=== PATIENT | male | born 1950 | race Caucasian/White ===

== ENCOUNTER 2023-11-26 16:57 | Inpatient (IN) | payer MEDICARE, OTHER ==
--- NOTE | 2023-11-26 17:25 | ED ---
Weakness HPI - General Chief complaint: Weakness Stated complaint: Hypothermia Time Seen by Provider: 11/26/23 17:15 Source: EMS, RN notes reviewed, old records reviewed Mode of arrival: EMS Limitations: no limitations - History of Present Illness Initial comments: 73-year-old male to the emergency department for evaluation today. Patient presents to the ER today for evaluation of severe weakness altered mental status and found to be acting appropriately outside, when EMS got the patient's house the house was significantly cold with a temperature in the 30s and patient was outside with altered mental status presents to ER with hypothermia MD Complaint: generalized weakness, lack of energy, difficulty walking -: days(s) Location: generalized Severity: moderate Severity scale (1-10): 7 Quality: aching Consistency: constant Improves with: none Worsens with: none Context: recent illness, history of similar Associated Symptoms: denies other symptoms - Related Data Home Medications Medication Instructions Recorded Confirmed Multivitamins, Thera [Multivitamin 1 tab PO DAILY 11/26/23 11/26/23 (formulary)] Allergies Allergy/AdvReac Type Severity Reaction Status Date / Time No Known Allergies Allergy Verified 11/26/23 18:17 Review of Systems ROS Statement: Those systems with pertinent positive or pertinent negative responses have been documented in the HPI. ROS Other: All systems not noted in ROS Statement are negative. Past Medical History Past Medical History: No Reported History History of Any Multi-Drug Resistant Organisms: None Reported Past Surgical History: No Surgical Hx Reported Past Psychological History: No Psychological Hx Reported Smoking Status: Never smoker Past Alcohol Use History: None Reported Past Drug Use History: None Reported General Exam Limitations: no limitations, altered mental status, physical limitation General appearance: alert, anxious, lethargic, obtunded, in distress Head exam: Present: atraumatic, normocephalic, normal inspection Eye exam: Present: normal appearance, PERRL, EOMI. Absent: scleral icterus, conjunctival injection, periorbital swelling ENT exam: Present: normal exam, mucous membranes moist Neck exam: Present: normal inspection. Absent: tenderness, meningismus, lymphadenopathy Respiratory exam: Present: normal lung sounds bilaterally. Absent: respiratory distress, wheezes, rales, rhonchi, stridor Cardiovascular Exam: Present: regular rate, normal rhythm, normal heart sounds. Absent: systolic murmur, diastolic murmur, rubs, gallop, clicks GI/Abdominal exam: Present: soft, normal bowel sounds. Absent: distended, tenderness, guarding, rebound, rigid Extremities exam: Present: normal inspection, full ROM, normal capillary refill. Absent: tenderness, pedal edema, joint swelling, calf tenderness Back exam: Present: normal inspection Neurological exam: Present: alert, oriented X3, CN II-XII intact Psychiatric exam: Present: normal affect, normal mood Skin exam: Present: warm, dry, intact, normal color. Absent: rash Course Vital Signs 11/26/23 11/26/23 11/26/23 17:07 17:58 18:00 Temperature 87.1 F L 90.0 F L Pulse Rate 68 62 67 Pulse Rate [ Pulse Oximetery ] Respiratory 18 16 16 Rate Blood Pressure 150/84 145/82 Blood Pressure [Supine] O2 Sat by Pulse 95 95 Oximetry 11/26/23 11/26/23 11/26/23 18:05 18:12 19:31 Temperature 90.0 F L 91.8 F L Pulse Rate 64 80 Pulse Rate [ Pulse Oximetery ] Respiratory 16 19 Rate Blood Pressure 152/106 Blood Pressure [Supine] O2 Sat by Pulse 99 Oximetry 11/26/23 11/26/23 11/26/23 20:59 21:17 21:51 Temperature 88.9 F L 86.9 F L 97.8 F Pulse Rate 79 87 Pulse Rate [ Pulse Oximetery ] Respiratory 17 17 Rate Blood Pressure Blood Pressure [Supine] O2 Sat by Pulse Oximetry 11/26/23 11/27/23 11/27/23 22:56 00:56 01:21 Temperature 97.7 F 97.6 F Pulse Rate 88 81 Pulse Rate [ Pulse Oximetery ] Respiratory 18 19 Rate Blood Pressure 156/91 145/126 Blood Pressure [Supine] O2 Sat by Pulse 92 L 96 Oximetry 11/27/23 11/27/23 11/27/23 03:20 04:14 06:08 Temperature 97.7 F 97.8 F Pulse Rate 89 84 89 Pulse Rate [ Pulse Oximetery ] Respiratory 18 19 Rate Blood Pressure 152/104 153/106 Blood Pressure [Supine] O2 Sat by Pulse 97 96 99 Oximetry 11/27/23 11/27/23 11/27/23 08:56 10:00 12:00 Temperature 97.8 F Pulse Rate 87 85 82 Pulse Rate [ Pulse Oximetery ] Respiratory 20 18 18 Rate Blood Pressure 165/98 165/115 155/97 Blood Pressure [Supine] O2 Sat by Pulse 100 98 98 Oximetry 11/27/23 11/27/23 11/27/23 14:00 18:45 19:46 Temperature 98.1 F 98.2 F Pulse Rate 84 82 Pulse Rate [ 94 Pulse Oximetery ] Respiratory 19 18 21 Rate Blood Pressure 160/99 138/96 Blood Pressure 166/88 [Supine] O2 Sat by Pulse 96 98 99 Oximetry - Reevaluation(s) Reevaluation #1: 11/26/23 19:26 Record is reviewed Reevaluation #2: 11/26/23 19:26 Patient's core temperature is improving slowly Reevaluation #3: 11/26/23 19:27 Patient informed results and questions are answered Reevaluation #4: 11/26/23 19:27 Was pt. sent in by a medical professional or institution (, PA, [employer] REPAIRER, urgent care, hospital, or retirement...) When possible be specific @ -no Did you speak to anyone other than the patient for history (EMS, parent, family, police, friend...)? What history was obtained from this source @ -no Did you review nursing and triage notes (agree or disagree)? Why? @ -agree Are old charts reviewed (outside hosp., previous admission, EMS record, old EKG, old radiological studies, urgent care reports/EKG's, retirement records)? Report findings @ -yes Differential Diagnosis (chest pain, altered mental status, abdominal pain women, abdominal pain men, vaginal bleeding, weakness, fever, dyspnea, syncope, headache, dizziness, GI bleed, back pain, seizure, CVA, palpatations, mental health, musculoskeletal)? @ -prior EKG interpreted by me (3pts min.). @ -yes X-rays interpreted by me (1pt min.). @ -yes CT interpreted by me (1pt min.). @ -yes positive for bilateral pneumonia U/S interpreted by me (1pt. min.). @ -no What testing was considered but not performed or refused? (CT, X-rays, U/S, labs)? Why? @ -none What meds were considered but not given or refused? Why? @ -none Did you discuss the management of the patient with other professionals (professionals i.e. , PA, [employer] REPAIRER, lab, RT, psych nurse, social professionals, hospice bereavement coordinator, teacher, special officer automat, bilingual case manager)? Give summary @ -no Was smoking cessation discussed for >3mins.? @ -no Was critical care preformed (if so, how long)? @ -yes31 Were there social determinants of health that impacted care today? How? (Homelessness, low income, unemployed, alcoholism, drug addiction, transportation, low edu. Level, literacy, decrease access to med. care, care home, rehab)? @ -none Was there de-escalation of care discussed even if they declined (Discuss DNR or withdrawal of care, Hospice)? DNR status @ -no What co-morbidities impacted this encounter? (DM, HTN, Smoking, COPD, CAD, Cancer, CVA, ARF, Chemo, Hep., AIDS, mental health diagnosis, sleep apnea, morbid obesity)? @ -none Was patient admitted / discharged? Hospital course, mention meds given and route, prescriptions, significant lab abnormalities, going to OR and other pertinent info. @ - 73 male to the emergency department for evaluation of altered mental status decreased responsiveness and severe hypothermia, whether induced hypothermia patient will be admitted for rewarming and monitoring of vital signs supportive care Admitted Undiagnosed new problem with uncertain prognosis? @ -no Drug Therapy requiring intensive monitoring for toxicity (Heparin, Nitro, Insulin, Cardizem)? @ -no Were any procedures done? @ -no Diagnosis/symptom? @ -Hypothermia, weakness, pneumonia Acute, or Chronic, or Acute on Chronic? @ -Acute Uncomplicated (without systemic symptoms) or Complicated (systemic symptoms)? @ -Complicated Side effects of treatment? @ -no Exacerbation, Progression, or Severe Exacerbation? @ -exacerbation Poses a threat to life or bodily function? How? (Chest pain, USA, CT, pneumonia, PE, COPD, DKA, ARF, appy, cholecystitis, CVA, Diverticulitis, Homicidal, Suicidal, threat to staff... and all critical care pts) @ -yes significant hypothermia Reevaluation #5: 11/26/23 19:40 Differential Altered Mental Status: Hypoglycemia, DKA, hypercapnia, ETOH, overdose, CO poisoning, trauma, myxedema coma, HTN encephalopathy, infection, encephalitis, psychosis, intercranial hemorrhage, hepatic encephalopathy, meningitis, CVA, this is not meant to be an all-inclusive list - Consultations Consultation #1: Spoke with Dr. Dewitt who will admit this patient Consultation #2: spoke w Dr Tyler eller ICU admission EKG Findings - EKG Comments: EKG Findings:: EKG is sinus 64 GA 148 QRS 117 QTc 479 - EKG Results: EKG: interpreted by FREDY Medical Decision Making - Medical Decision Making 73 male to the emergency department for evaluation of altered mental status decreased responsiveness and severe hypothermia, whether induced hypothermia patient will be admitted for rewarming and monitoring of vital signs supportive care, patient found to have pneumonia on CT scanning - Lab Data Result diagrams: 11/30/23 04:02 11/30/23 04:02 Lab Results 11/26/23 11/26/23 11/26/23 Range/Units 17:41 17:41 17:41 WBC 11.2 H (3.8-10.6) k/uL RBC 3.67 L (4.30-5.90) m/uL Hgb 10.8 L (13.0-17.5) gm/dL Hct 33.1 L (39.0-53.0) % MCV 90.2 (80.0-100.0) fL MCH 29.4 (25.0-35.0) pg MCHC 32.6 (31.0-37.0) g/dL RDW 16.6 H (11.5-15.5) % Plt Count 252 (150-450) k/uL MPV 8.2 Neutrophils % 94 % Lymphocytes % 3 % Monocytes % 2 % Eosinophils % 0 % Basophils % 0 % Neutrophils # 10.5 H (1.3-7.7) k/uL Lymphocytes # 0.4 L (1.0-4.8) k/uL Monocytes # 0.2 (0-1.0) k/uL Eosinophils # 0.0 (0-0.7) k/uL Basophils # 0.0 (0-0.2) k/uL Anisocytosis Slight PT 13.3 H (10.0-12.5) sec INR 1.3 H (<1.2) APTT 30.3 H (22.0-30.0) sec D-Dimer 3.31 H (<0.60) mg/L FEU Sodium (137-145) mmol/L Potassium (3.5-5.1) mmol/L Chloride (98-107) mmol/L Carbon Dioxide (22-30) mmol/L Anion Gap mmol/L BUN (9-20) mg/dL Creatinine (0.66-1.25) mg/dL Est GFR (CKD-EPI)AfAm (>60 ml/min/1.73 sqM) Est GFR (CKD-EPI)NonAf (>60 ml/min/1.73 sqM) Glucose (74-99) mg/dL Plasma Lactic Acid Pool (0.7-2.0) mmol/L Calcium (8.4-10.2) mg/dL Phosphorus (2.5-4.5) mg/dL Magnesium (1.6-2.3) mg/dL Total Bilirubin (0.2-1.3) mg/dL AST (17-59) U/L ALT (4-49) U/L Alkaline Phosphatase (38-126) U/L Ammonia (<30) umol/L Creatine Kinase (55-170) U/L Troponin I (0.000-0.034) ng/mL NT-Pro-B Natriuret Pep pg/mL Total Protein (6.3-8.2) g/dL Albumin (3.5-5.0) g/dL TSH (0.465-4.680) mIU/L Urine Color Yellow Urine Appearance Clear (Clear) Urine pH 5.5 (5.0-8.0) Ur Specific O'Brien 1.021 (1.001-1.035) Urine Protein 1+ H (Negative) Urine Glucose (UA) Negative (Negative) Urine Ketones Negative (Negative) Urine Blood Trace H (Negative) Urine Nitrite Negative (Negative) Urine Bilirubin Negative (Negative) Urine Urobilinogen <2.0 (<2.0) mg/dL Ur Leukocyte Esterase Negative (Negative) Urine RBC 1 (0-5) /hpf Urine WBC 4 (0-5) /hpf Hyaline Casts 7 H (0-2) /lpf Urine Mucus Occasional H (None) /hpf Serum Alcohol mg/dL 11/26/23 11/26/23 11/26/23 Range/Units 17:41 17:41 17:41 WBC (3.8-10.6) k/uL RBC (4.30-5.90) m/uL Hgb (13.0-17.5) gm/dL Hct (39.0-53.0) % MCV (80.0-100.0) fL MCH (25.0-35.0) pg MCHC (31.0-37.0) g/dL RDW (11.5-15.5) % Plt Count (150-450) k/uL MPV Neutrophils % % Lymphocytes % % Monocytes % % Eosinophils % % Basophils % % Neutrophils # (1.3-7.7) k/uL Lymphocytes # (1.0-4.8) k/uL Monocytes # (0-1.0) k/uL Eosinophils # (0-0.7) k/uL Basophils # (0-0.2) k/uL Anisocytosis PT (10.0-12.5) sec INR (<1.2) APTT (22.0-30.0) sec D-Dimer (<0.60) mg/L FEU Sodium 132 L (137-145) mmol/L Potassium 3.5 (3.5-5.1) mmol/L Chloride 94 L (98-107) mmol/L Carbon Dioxide 29 (22-30) mmol/L Anion Gap 9 mmol/L BUN 23 H (9-20) mg/dL Creatinine 0.82 (0.66-1.25) mg/dL Est GFR (CKD-EPI)AfAm >90 (>60 ml/min/1.73 sqM) Est GFR (CKD-EPI)NonAf 89 (>60 ml/min/1.73 sqM) Glucose 166 H (74-99) mg/dL Plasma Lactic Acid Pool 1.8 (0.7-2.0) mmol/L Calcium 9.6 (8.4-10.2) mg/dL Phosphorus 5.1 H (2.5-4.5) mg/dL Magnesium 1.8 (1.6-2.3) mg/dL Total Bilirubin 0.5 (0.2-1.3) mg/dL AST 79 H (17-59) U/L ALT 23 (4-49) U/L Alkaline Phosphatase 106 (38-126) U/L Ammonia <9 (<30) umol/L Creatine Kinase 533 H (55-170) U/L Troponin I 0.020 (0.000-0.034) ng/mL NT-Pro-B Natriuret Pep 4550 pg/mL Total Protein 6.0 L (6.3-8.2) g/dL Albumin 3.3 L (3.5-5.0) g/dL TSH 3.530 (0.465-4.680) mIU/L Urine Color Urine Appearance (Clear) Urine pH (5.0-8.0) Ur Specific O'Brien (1.001-1.035) Urine Protein (Negative) Urine Glucose (UA) (Negative) Urine Ketones (Negative) Urine Blood (Negative) Urine Nitrite (Negative) Urine Bilirubin (Negative) Urine Urobilinogen (<2.0) mg/dL Ur Leukocyte Esterase (Negative) Urine RBC (0-5) /hpf Urine WBC (0-5) /hpf Hyaline Casts (0-2) /lpf Urine Mucus (None) /hpf Serum Alcohol <10 mg/dL - EKG Data -: EKG Interpreted by Ct - Radiology Data Radiology results: report reviewed (X-rays negative for acute disease, CT chest CT head and pelvis is positive for pneumonia), image reviewed Critical Care Time Critical Care Time: Yes Total Critical Care Time: 31 Disposition Clinical Impression: Dehydration, Hypothermia, Pneumonia, Anemia, Metastatic cancer, Bilateral pneumonia Disposition: ADMITTED IP TO THIS [facility] Condition: Serious Is patient prescribed a controlled substance at d/c from ED?: No Time of Disposition: 19:20
[2023-11-26] MEDS: SODIUM CHLORIDE 0.9% 500 ML 500 ML IV STA (17:40)
[2023-11-26] MEDS: SODIUM CHLORIDE 0.9% 1,000 ML IV STA ×2 (17:40)
[2023-11-26] MEDS: IPRATROPIUM-ALBUTEROL 3 ML NEB INHALATION STA (17:58)
[2023-11-26] MEDS: HYDROCORTISONE SUCCINATE 100 MG/2 ML VIAL IV STA (18:00)
[2023-11-26 18:14] LABS: Lactic Acid, Venous 1.8 mmol/L (0.7-2.0)
[2023-11-26 18:16] LABS: ALT 23 U/L (4-49); African American GFR (CKD) >90 (>60 ml/min/1.73 sqM); Albumin 3.3 g/dL (3.5-5.0); Alcohol <10 mg/dL; Alkaline Phosphatase 106 U/L (38-126); Anion Gap 9 mmol/L; Blood Urea Nitrogen 23 mg/dL (9-20); Calcium 9.6 mg/dL (8.4-10.2); Carbon Dioxide 29 mmol/L (22-30); Chloride 94 mmol/L (98-107); Creatine Kinase 533 U/L (55-170); Glucose 166 mg/dL (74-99); Non-African American GFR(CKD) 89 (>60 ml/min/1.73 sqM); Phosphorus 5.1 mg/dL (2.5-4.5); Sodium 132 mmol/L (137-145); Total Bilirubin 0.5 mg/dL (0.2-1.3)
[2023-11-26 18:19] LABS: AST 79 U/L (17-59); Potassium 3.5 mmol/L (3.5-5.1)
[2023-11-26 18:20] LABS: Magnesium 1.8 mg/dL (1.6-2.3)
[2023-11-26 18:23] LABS: Anisocytosis Slight; Basophils % (A) 0 %; Eosinophils % (A) 0 %; HCT 33.1 % (39.0-53.0); HGB 10.8 gm/dL (13.0-17.5); Lymphocytes # (A) 0.4 k/uL (1.0-4.8); Lymphocytes % (A) 3 %; MCH 29.4 pg (25.0-35.0); MCHC 32.6 g/dL (31.0-37.0); MCV 90.2 fL (80.0-100.0); Mean Platelet Volume 8.2; Monocytes # (A) 0.2 k/uL (0-1.0); Monocytes % (A) 2 %; Neutrophils # (A) 10.5 k/uL (1.3-7.7); Neutrophils % (A) 94 %; Platelet Count 252 k/uL (150-450); RBC 3.67 m/uL (4.30-5.90); RDW 16.6 % (11.5-15.5); WBC 11.2 k/uL (3.8-10.6)
[2023-11-26 18:24] LABS: INR 1.3 (<1.2); NT-Pro-B-Type Natriuretic Pept 4550 pg/mL; Partial Thromboplastin Time 30.3 sec (22.0-30.0); Prothrombin Time 13.3 sec (10.0-12.5)
--- NOTE | 2023-11-26 18:55 | XR ---
EXAMINATION TYPE: XR chest 1V portable DATE OF EXAM: 11/26/2023 COMPARISON: NONE HISTORY: Weakness TECHNIQUE: Single frontal view of the chest is obtained. FINDINGS: There are scattered partially consolidative opacities greatest in the left lung base. The heart is mi ldly prominent in size pulmonary vasculature appears mildly congested. There is no pneumothorax or large pleural effusion. There is a chronic displaced left clavicle fractu re. IMPRESSION: Acute cardia point disease could represent mild CHF with mild scattered pulmonary edema but the possibility of pneumonic infiltrates not excluded. Chronic displaced left clavicle fracture.
[2023-11-26] MEDS ORDERED: NALOXONE 0.4 MG/ML 1 ML VIAL IV PRN ×2 (19:41)
[2023-11-26] MEDS ORDERED: IPRATROPIUM-ALBUTEROL 3 ML NEB INHALATION PRN (19:41)
[2023-11-26] MEDS ORDERED: ONDANSETRON 4 MG/2 ML VIAL IVP PRN (19:41)
[2023-11-26 20:17] LABS: Appearance,Urine Clear (Clear); Bilirubin,Urine Negative (Negative); Blood,Urine Trace (Negative); Color,Urine Yellow; Glucose,Urine (UA) Negative (Negative); Hyaline Casts,Urine 7 /lpf (0-2); Ketones,Urine Negative (Negative); Leukocyte Esterase,Urine Negative (Negative); Mucus,Urine Occasional /hpf; Nitrite,Urine Negative (Negative); PH, Urine 5.5 (5.0-8.0); Protein,Urine 1+ (Negative); RBC,Urine 1 /hpf (0-5); Specific Gravity,Urine 1.021 (1.001-1.035); Urobilinogen,Urine <2.0 mg/dL (<2.0); WBC,Urine 4 /hpf (0-5)
--- NOTE | 2023-11-26 20:56 | CT ---
EXAMINATION TYPE: CT abdomen pelvis w con DATE OF EXAM: 11/26/2023 COMPARISON: None HISTORY: Pt was found outside in a snow bank. Pt was taken into his house by bystanders who said his home was [address] DLP: Combined DLP of 1439.7 mGycm Automated exposure control for dose reduction was used. TECHNIQUE: Helical acquisition of images was performed from the lung bases through the pelvis. CONTRAST: Performed without Oral Contrast and with IV Contrast, patient injected with 100ml mL of Isovue 370. FINDINGS: There are bilateral lower lobe infiltrates left greater than right. There is massive retroperitoneal adenopathy, the largest mass measuring 10 cm by nearly 10 cm lung al lima the left aspect of the aorta. There are multiple additional markedly enlarged retroperitoneal lym ph nodes. There is marked internal inguinal adenopathy. The largest node on the right is 8.8 cm the l argest node on the left is approximately 6 cm. There is a massively enlarged prostate gland which is 8.9 x 10 cm. The right kidney is markedly atrophic. There is a large parapelvic cysts of the left kidney. The stomach and right colon are markedly distended but there is no definite bowel obstruction. There is no free intraperitoneal air or fluid. The gallbladder is normal and there is no biliary ductal dilatation. There is no focal mass or organomegaly involving the liver pancreas or spleen. There is a 3.4 cm left adrenal mass. Caliber the abdominal aorta is normal. There are multiple lytic lesions involving the lower thoracic, lumbar spine and pelvis but there is n o pathologic fracture. IMPRESSION: 1. Bibasilar lung infiltrates. 2. Massively enlarged prostate gland with massive retroperitoneal and pelvic adenopathy as described above. 3. Multiple lytic lesions of the dorsal spine and pelvis without pathologic fracture 4. markedly atrophic right kidney 5. Findings likely indicate advanced prostate cancer with marked retroperitoneal and pelvic adenopath y and bone metastasis.
--- NOTE | 2023-11-26 21:02 | CT ---
EXAMINATION TYPE: CT angio chest DATE OF EXAM: 11/26/2023 8:40 PM COMPARISON: None HISTORY: Pt was found outside in a snow bank. Pt was taken into his house by bystanders who said his home was [address] DLP: Combined DLP of 1439.7 mGycm Automated exposure control for dose reduction was used. CONTRAST: CTA scan of the thorax is performed with IV Contrast, patient injected with 100ml mL of Isovue 370, p ulmonary embolism protocol. . FINDINGS: Partially consolidative bibasilar infiltrates, left much greater than right, likely indicating bibas ilar pneumonia Moderate to marked cardiomegaly. The great vessels the chest are otherwise normal. There is no fillin g defect within the pulmonary arteries or branches to suggest pulmonary embolism. There is no pleural effusion or pneumothorax. There are multiple lytic lesions scattered throughout the thoracic spine and possibly within the ster num as well. There is a moderate compression fracture of one of the lower thoracic or upper lumbar ve rtebral segments. IMPRESSION: 1. Bilateral pneumonia. 2. No evidence of pulmonary embolism. 3. Multiple lytic osseous lesions within the bony thorax is described above. The findings are consist ent with metastatic disease likely from prostate cancer, see the CT of the abdomen and pelvis of the same date.
[2023-11-26] MEDS: SODIUM CHLORIDE 0.9% 1,000 ML IV SCH (21:13)
[2023-11-26] MEDS: methylPREDNISolone SOD SUCCI 125 MG/2 ML VIAL IV STA (21:15)
[2023-11-27] MEDS: methylPREDNISolone SOD SUCCI 125 MG/2 ML VIAL IV SCH (01:11)
[2023-11-27] MEDS: PIPERACILLIN-TAZOBACTAM 3.375 GM in SODIUM CHLORIDE 0.9% 100 ML IVPB SCH (01:11)
--- NOTE | 2023-11-27 01:16 | HP ---
HISTORY AND PHYSICAL HISTORY OF PRESENT ILLNESS: A 73-year-old white male, came to the ER with severe weakness, altered mental status with hypothermia, achy, constant pain, found to have elevated CPK. MEDICATIONS: Multivitamin. ALLERGIES: No known drug allergies. SOCIAL HISTORY: Does not smoke or drink. REVIEW OF SYSTEMS: A 14-point review of systems otherwise negative. PHYSICAL EXAMINATION: VITAL SIGNS: Stable. CARDIOVASCULAR: S1, S2. LUNGS: Transmitted upper sounds. Scattered wheeze. HEMATOLOGY: Negative Homans. PSYCH: Fair mood and affect. NEUROLOGIC: Alert and oriented x3. OPHTHALMOLOGIC: Pupils equal, round, reactive. VITAL SIGNS: Temperature is 98 degrees Fahrenheit, pulse 66 to 68, respiratory rate 16 to 18, blood pressure 145 to 150 over 80s, blood pressure elevated 152/106. ASSESSMENT: Severe hypothermic, rhabdomyolysis, chronic obstructive pulmonary disease, acute on chronic respiratory failure, leukocytosis, acute on chronic anemia, hyponatremia, dehydration, altered mental status, decreased responsiveness every morning. ICU care. Consult Dr. Scott for hyperglycemia, most likely diabetes. Elevated D-dimer, rule out PE, cardiomyolysis, protein-calorie malnutrition. Prognosis guarded. Please see further orders. MMODL / IJN: [id number] /
[2023-11-27 01:21] LABS: Alcohol <10 mg/dL; Creatine Kinase 531 U/L (55-170)
[2023-11-27 04:40] LABS: Anisocytosis Slight; Basophils % (A) 0 %; Eosinophils % (A) 0 %; HCT 32.3 % (39.0-53.0); HGB 10.3 gm/dL (13.0-17.5); Hypochromasia Slight; Lymphocytes # (A) 0.1 k/uL (1.0-4.8); Lymphocytes % (A) 1 %; MCH 29.2 pg (25.0-35.0); MCHC 31.8 g/dL (31.0-37.0); MCV 91.8 fL (80.0-100.0); Mean Platelet Volume 8.3; Monocytes # (A) 0.1 k/uL (0-1.0); Monocytes % (A) 1 %; Neutrophils # (A) 9.7 k/uL (1.3-7.7); Neutrophils % (A) 97 %; Platelet Count 262 k/uL (150-450); RBC 3.52 m/uL (4.30-5.90); RDW 16.6 % (11.5-15.5)
[2023-11-27 04:45] LABS: ALT 25 U/L (4-49); AST 91 U/L (17-59); African American GFR (CKD) >90 (>60 ml/min/1.73 sqM); Albumin 3.2 g/dL (3.5-5.0); Alkaline Phosphatase 116 U/L (38-126); Anion Gap 8 mmol/L; Blood Urea Nitrogen 22 mg/dL (9-20); Calcium 9.1 mg/dL (8.4-10.2); Carbon Dioxide 27 mmol/L (22-30); Chloride 98 mmol/L (98-107); Glucose 118 mg/dL (74-99); Magnesium 1.7 mg/dL (1.6-2.3); Non-African American GFR(CKD) 87 (>60 ml/min/1.73 sqM); Phosphorus 5.3 mg/dL (2.5-4.5); Potassium 3.5 mmol/L (3.5-5.1); Sodium 133 mmol/L (137-145); Total Bilirubin 0.5 mg/dL (0.2-1.3); Total Protein 5.9 g/dL (6.3-8.2)
--- NOTE | 2023-11-27 08:00 | P.CNPUL ---
History of Present Illness Consult date: 11/27/23 Requesting physician: John Vaz Reason for consult: other (Hypothermia, ICU management) Chief complaint: Altered mental status History of present illness: I am seeing this patient in new consultation today 11/27/2023 the emergency room after the patient was brought in yesterday by EMS, he was hypothermic, reportedly found outside. Patient is a 73-year-old white male, past medical history is largely unknown, the patient is a very poor historian. Apparently, EMS reported finding him outside, confused, they brought him into his house, in which the heat was not working. He was then brought to [facility]. He was hypothermic on arrival with a temperature of 87.1F rectally. On my evaluation, the patient is alert and sitting up in bed. He is on room air, SpO2 is 86%. Reportedly will not wear supplemental oxygen. He is now normothermic. He is eating a Popsicle. Patient's story is inconsistent, he reports that he was only outside to get his mail, and then contradicts himself by saying that he only walked one city block. The nurse reports that family was at bedside earlier, and stated that he may have been walking to the liquor store. The patient denies this. He states that he does not drink or smoke. It is difficult to obtain a consistent past medical history. Chest x-ray on arrival mild cardiomegaly, possible mild pulmonary vascular congestion, and basilar infiltrates, greater on the left. D- dimer is elevated, the patient had a follow-up chest CTA which did not show any evidence of pulmonary embolism. It did show marked bibasilar infiltrates greater on the left, consistent with bibasilar pneumonia. There were multiple lytic osseous lesions within the bony thorax consistent with metastatic disease. An abdomen and pelvis CT redemonstrated the above-mentioned abnormalities, as well as demonstrating a massively enlarged prostate gland measuring 8.9 x 10 cm, massive retroperitoneal and pelvic adenopathy with the largest lymph node measuring 8.8 cm, multiple lytic lesions of the dorsal spine and pelvis without pathological fracture, and an atrophic right kidney. When questioned about patient's previous history of prostate cancer, the patient states he knows he has prostate cancer, and is not undergoing any treatment at this time. He denies any significant urinary complaints such as dysuria, hematuria, freqency, urgency, or incomplete voiding. CBC demonstrates a WBC count 11.2, hemoglobin 10.8, hematocrit 33.1, platelets 252. BMP shows sodium 132, potassium 3.5, chloride 94, serum bicarbonate 29, BUN 23, creatinine 0.82, and glucose 166. CPK 533. Normal saline infusing at 75 mL per hour. Urinalysis not consistent with urinary tract infection. Troponins 0.02, 0.03, and 0.046 respectfully. NT proBNP elevated at 4550. Patient does have edematous lower extremities with multiple erythemic abrasions. When asked about this, the patient states he was stung by bees. It is winter. Serum alcohol less than 10 on arrival. Vitals are stable. Review of Systems REVIEW OF SYSTEMS: CONSTITUTIONAL: Admits weight loss but unsure of how much or timeframe EYES: Denies change in vision. EARS, NOSE, MOUTH, THROAT: Denies headaches, denies sore throat. CARDIOVASCULAR: Denies chest pain, palpitations or syncopal episodes. RESPIRATORY: Denies shortness of breath, cough, congestion or hemoptysis. GASTROINTESTINAL: Denies change in appetite, abdominal pain, nausea and vomiting, or diarrhea GENITOURINARY: Denies hematuria, denies infections. MUSKULOSKELETAL: Denies pain, denies swelling. INTEGUMENTARY: Unsure of how his bilateral lower extremity abrasions occurred. NEUROLOGICAL: Denies recent memory loss, no recent seizure activity. PSYCHIATRIC: Denies anxiety, denies depression. HEMATOLOGIC/LYMPHATIC: Denies anemia, denies enlarged lymph node Past Medical History Past Medical History: No Reported History History of Any Multi-Drug Resistant Organisms: None Reported Past Surgical History: No Surgical Hx Reported Past Psychological History: No Psychological Hx Reported Smoking Status: Never smoker Past Alcohol Use History: None Reported Past Drug Use History: None Reported Medications and Allergies Home Medications Medication Instructions Recorded Confirmed Type Multivitamins, Thera [Multivitamin 1 tab PO DAILY 11/26/23 11/26/23 History (formulary)] Allergies Allergy/AdvReac Type Severity Reaction Status Date / Time No Known Allergies Allergy Verified 11/26/23 18:17 Physical Exam Vitals: Vital Signs Temp Pulse Resp BP Pulse Ox 11/27/23 00:56 97.6 F 11/26/23 22:56 97.7 F 88 18 156/91 92 L 11/26/23 21:51 97.8 F 11/26/23 21:17 86.9 F L 87 17 11/26/23 20:59 88.9 F L 79 17 11/26/23 19:31 91.8 F L 80 19 152/106 99 11/26/23 18:12 90.0 F L 11/26/23 18:05 64 16 11/26/23 18:00 90.0 F L 67 16 145/82 95 11/26/23 17:58 62 16 11/26/23 17:07 87.1 F L 68 18 150/84 95 Intake and Output 11/26/23 11/26/23 11/27/23 14:59 22:59 06:59 Other: Weight 63.503 kg GENERAL EXAM: Alert, 73-year-old white male, frail, comfortable in no apparent distress. HEAD: Normocephalic. 2 small abrasions on the top of his head. EYES: Normal reaction of pupils, equal size. NOSE: Clear with pink turbinates. THROAT: No erythema or exudates. NECK: No masses, no JVD. No palpable lymphadenopathy. CHEST: No chest wall deformity. There is significant superficial venous congestion on his anterior chest. LUNGS: Equal air entry with diminished lung sounds at the bases. No significant wheezing, crackles, rhonchi. On room air. SpO2 86%. He has a persistent productive cough, which is orange tinged. The color of the popsicle he is eating. No conversational dyspnea or accessory muscle use.. CVS: S1 and S2 normal with no audible murmur, regular rhythm. No extra heart sounds ABDOMEN: No hepatosplenomegaly, active bowel sounds, no guarding or rigidity. SPINE: No scoliosis or deformity SKIN: No rashes CENTRAL NERVOUS SYSTEM: No focal deficits, tone is normal in all 4 extremities. He is alert. He is oriented to self and place only. EXTREMITIES: There is bilateral lower extremity edema 2-3+, greater on the left leg, he is wearing a knee brace, which is tight. No clubbing, or cyanosis. Peripheral pulses are intact. Results - Laboratory Findings CBC and BMP: 11/27/23 04:11 11/27/23 04:11 PT/INR, D-dimer PT 13.3 sec (10.0-12.5) H 11/26/23 17:41 INR 1.3 (<1.2) H 11/26/23 17:41 D-Dimer 3.31 mg/L FEU (<0.60) H 11/26/23 17:41 Abnormal lab findings: Abnormal Labs 11/26/23 11/26/23 11/26/23 17:41 17:41 17:41 WBC 11.2 H RBC 3.67 L Hgb 10.8 L Hct 33.1 L RDW 16.6 H Neutrophils # 10.5 H Lymphocytes # 0.4 L PT 13.3 H INR 1.3 H APTT 30.3 H D-Dimer 3.31 H Sodium Chloride BUN Glucose Phosphorus AST Creatine Kinase Troponin I Total Protein Albumin Urine Protein 1+ H Urine Blood Trace H Hyaline Casts 7 H Urine Mucus Occasional H 11/26/23 11/26/23 17:41 23:59 WBC RBC Hgb Hct RDW Neutrophils # Lymphocytes # PT INR APTT D-Dimer Sodium 132 L Chloride 94 L BUN 23 H Glucose 166 H Phosphorus 5.1 H AST 79 H Creatine Kinase 533 H Troponin I 0.046 H* Total Protein 6.0 L Albumin 3.3 L Urine Protein Urine Blood Hyaline Casts Urine Mucus - Diagnostic Findings Chest x-ray: image reviewed CT scan - chest: image reviewed Assessment and Plan Assessment: Hypothermia, patient was found outside after an unknown amount of time, now normothermic Acute hypoxemic respiratory failure, possibly secondary to bibasilar community acquired pneumonia and mild CHF exacerbation, unknown type. Chest CT demonstrates bibasilar infiltrates, left greater than right, which are partially consolidative, and consistent with possible bibasilar pneumonia. Underlying neoplasm is not entirely excluded. There is also cardiomegaly, mild pulmonary vascular congestion. NT proBNP elevated at 4550. Altered mental status, possibly acute metabolic encephalopathy, secondary to above or hypoxia Suspected metastatic prostate cancer, CT of the abdomen and pelvis demonstrating a massively enlarged prostate gland measuring 8.9 x 10 cm, a 10 x 10 cm i ntrabdominal mass, and massive retroperitoneal and pelvic adenopathy with the largest lymph node measuring 8.8 cm on the right and 6 cm on the left, multiple lytic lesions of the dorsal spine and pelvis without pathological fracture, and an atrophic right kidney. CTA of the chest demonstrated further osseous metastasis of the T-spine and possibly the sternum. Hypertension Normocytic normochromic anemia Mild leukocytosis Elevated d-dimer, no pulmonary embolism found. Bilateral lower extremity edema Possible history of alcoholism, serum EtOH less than 10 on arrival History of tobacco dependence Plan: Patient's medications, labs and imaging reviewed Place the patient on supplemental oxygen. Continue bronchodilators as needed. Patient is now normothermic Empirically cover the patient on antibiotics. Check procalcitonin level. Echocardiogram is pending. Monitor CPK Consult oncology for metastatic disease PSA level is pending Little is known about the patient's previous diagnosis of prostate cancer. No prior records to review at our facility. Patient states that he is not currently receiving any kind of treatment. He states that he has not seen a physician since 2019. Patient is hemodynamically stable. No need for admission to the intensive care unit. I have personally seen and examined the patient, performed the documentation and the assessment and plan as written. Number of minutes spent on the visit:20 Time with Patient: Greater than 30
[2023-11-27] MEDS: PANTOPRAZOLE 40 MG/10 ML VIAL IV SCH (08:51)
--- NOTE | 2023-11-27 09:30 | P.CONS ---
History of Present Illness - Reason for Consult Consult date: 11/27/23 metastatic malignancy Requesting physician: Vadim Dewitt - Chief Complaint Concerns for hyperthermia - History of Present Illness This is from a consult dated 07/23/19 Mister Okeefe is a 73-year-old male who we've been asked to see because of abnormal findings on imaging. Patient is in the emergency department because there were concerns for hyperthermia. Patient was initially seen in consult at [facility] 08/2017. He did not show up for a regular meeting with his friends so, a well check was done, he was found on the floor with leg swelling so, he was taken to the hospital. He had CT CAP that showed a large retroperitoneal mass extending from the right kidney into the pelvis, suspected left right femoral thrombosis, right kidney with moderate hydronephrosis. He ended up having a biopsy of retroperitoneal mass, 09/16/2017, pathology positive for poorly differentiated carcinoma of prostate origin. We tried to get with pt for f/u but he was unable to follow-up. He was seen again at [facility] in 2019. At that time, we tried working with his PCP to coordinate treatment with ADT and LHRH antagonist, as he was more apt follow-up with PCP but, unfortunately he did not. He reports he has not seen a Dr since 2019. Patient is not able to give us much information about why he in the hospital now. He reports that he has a "trick knee" and that it just gives out on him and he falls. He is not able to explain the excoriation to his lower extremities, his left foot is cold compared to the right foot. He has a specimen container at the bedside that has grossly bloody fluid in it, he reports that it is "tea" and that he didn't cough it up. Review of Systems Review of systems difficult to obtain due to mental status. Past Medical History Past Medical History: No Reported History (Prostate adenocarcinoma, 09/2017), Cancer History of Any Multi-Drug Resistant Organisms: None Reported Past Surgical History: No Surgical Hx Reported Past Anesthesia/Blood Transfusion Reactions: Unable to Obtain Past Psychological History: No Psychological Hx Reported Smoking Status: Never smoker Past Alcohol Use History: None Reported Past Drug Use History: None Reported Additional History: Unable to obtain Medications and Allergies Home Medications Medication Instructions Recorded Confirmed Type Multivitamins, Thera [Multivitamin 1 tab PO DAILY 11/26/23 11/26/23 History (formulary)] Allergies Allergy/AdvReac Type Severity Reaction Status Date / Time No Known Allergies Allergy Verified 11/26/23 18:17 Physical Exam Vitals: Vital Signs Temp Pulse Resp BP Pulse Ox 11/27/23 06:08 97.8 F 89 19 153/106 99 11/27/23 04:14 84 18 96 11/27/23 03:20 97.7 F 89 152/104 97 11/27/23 01:21 81 19 145/126 96 11/27/23 00:56 97.6 F 11/26/23 22:56 97.7 F 88 18 156/91 92 L 11/26/23 21:51 97.8 F 11/26/23 21:17 86.9 F L 87 17 11/26/23 20:59 88.9 F L 79 17 11/26/23 19:31 91.8 F L 80 19 152/106 99 11/26/23 18:12 90.0 F L 11/26/23 18:05 64 16 11/26/23 18:00 90.0 F L 67 16 145/82 95 11/26/23 17:58 62 16 11/26/23 17:07 87.1 F L 68 18 150/84 95 Intake and Output 11/26/23 11/27/23 11/27/23 22:59 06:59 14:59 Other: Weight 63.503 kg - Constitutional General appearance: cooperative, disheveled, thin - EENT Eyes: anicteric sclerae, EOMI ENT: hearing grossly normal - Neck Patient has significant prominent left chest wall vasculature Neck: no lymphadenopathy - Respiratory Left lower lobe significantly diminished breath sounds, Gross hemoptysis based on what was in specimen container - Cardiovascular Left lower extremity is cold to the touch Rhythm: regular Heart sounds: normal: S1, S2 leg Peripheral Edema: bilateral: Trace - Gastrointestinal General gastrointestinal: soft - Integumentary Bilateral lower extremity excoriations/wounds - Neurologic Neurologic: CNII-XII intact (Grossly) - Psychiatric Patient oriented to self, He knows he is in the hospital, he reported the date is November 26, 2023 Psychiatric: A&O x's 3, appropriate affect Results CBC & Chem 7: 11/27/23 04:11 11/27/23 04:11 Labs: Abnormal Lab Results - Last 24 Hours (Table) 11/26/23 11/26/23 11/26/23 Range/Units 17:41 17:41 17:41 WBC 11.2 H (3.8-10.6) k/uL RBC 3.67 L (4.30-5.90) m/uL Hgb 10.8 L (13.0-17.5) gm/dL Hct 33.1 L (39.0-53.0) % RDW 16.6 H (11.5-15.5) % Neutrophils # 10.5 H (1.3-7.7) k/uL Lymphocytes # 0.4 L (1.0-4.8) k/uL PT 13.3 H (10.0-12.5) sec INR 1.3 H (<1.2) APTT 30.3 H (22.0-30.0) sec D-Dimer 3.31 H (<0.60) mg/L FEU Sodium (137-145) mmol/L Chloride (98-107) mmol/L BUN (9-20) mg/dL Glucose (74-99) mg/dL Phosphorus (2.5-4.5) mg/dL AST (17-59) U/L Creatine Kinase (55-170) U/L Troponin I (0.000-0.034) ng/mL Total Protein (6.3-8.2) g/dL Albumin (3.5-5.0) g/dL Urine Protein 1+ H (Negative) Urine Blood Trace H (Negative) Hyaline Casts 7 H (0-2) /lpf Urine Mucus Occasional H (None) /hpf 11/26/23 11/26/23 11/27/23 Range/Units 17:41 23:59 00:43 WBC (3.8-10.6) k/uL RBC (4.30-5.90) m/uL Hgb (13.0-17.5) gm/dL Hct (39.0-53.0) % RDW (11.5-15.5) % Neutrophils # (1.3-7.7) k/uL Lymphocytes # (1.0-4.8) k/uL PT (10.0-12.5) sec INR (<1.2) APTT (22.0-30.0) sec D-Dimer (<0.60) mg/L FEU Sodium 132 L (137-145) mmol/L Chloride 94 L (98-107) mmol/L BUN 23 H (9-20) mg/dL Glucose 166 H (74-99) mg/dL Phosphorus 5.1 H (2.5-4.5) mg/dL AST 79 H (17-59) U/L Creatine Kinase 533 H 531 H (55-170) U/L Troponin I 0.046 H* (0.000-0.034) ng/mL Total Protein 6.0 L (6.3-8.2) g/dL Albumin 3.3 L (3.5-5.0) g/dL Urine Protein (Negative) Urine Blood (Negative) Hyaline Casts (0-2) /lpf Urine Mucus (None) /hpf 11/27/23 11/27/23 Range/Units 04:11 04:11 WBC (3.8-10.6) k/uL RBC 3.52 L (4.30-5.90) m/uL Hgb 10.3 L (13.0-17.5) gm/dL Hct 32.3 L (39.0-53.0) % RDW 16.6 H (11.5-15.5) % Neutrophils # 9.7 H (1.3-7.7) k/uL Lymphocytes # 0.1 L (1.0-4.8) k/uL PT (10.0-12.5) sec INR (<1.2) APTT (22.0-30.0) sec D-Dimer (<0.60) mg/L FEU Sodium 133 L (137-145) mmol/L Chloride (98-107) mmol/L BUN 22 H (9-20) mg/dL Glucose 118 H (74-99) mg/dL Phosphorus 5.3 H (2.5-4.5) mg/dL AST 91 H (17-59) U/L Creatine Kinase (55-170) U/L Troponin I (0.000-0.034) ng/mL Total Protein 5.9 L (6.3-8.2) g/dL Albumin 3.2 L (3.5-5.0) g/dL Urine Protein (Negative) Urine Blood (Negative) Hyaline Casts (0-2) /lpf Urine Mucus (None) /hpf Chest x-ray: report reviewed CT scan - abdomen: report reviewed CT scan - chest: report reviewed CT scan - pelvis: report reviewed Assessment and Plan Plan: Metastatic prostate adenocarcinoma -History of the same. Diagnosed 09/2017 from retroperitoneal biopsy. -Patient has not received treatment for the same. He has not been able to be contacted for appointments. In 2019, when he was seen in again, we worked closely with his PCP because, at that time he was following up with her fairly regularly. Patient states he has not seen a doctor since 2019. -PSA has been ordered CT of the chest 09/05/17 reports no pulmonary embolism, no mediastinal lym phadenopathy, no pleural or pericardial effusions, no mention of any bone lesions. Current CT of the chest reporting bilateral pneumonia, no evidence of PE, multiple lytic osseous lesions within the bony thorax are reported CT AP 09/04/17 liver, spleen, pancreas, gallbladder appear normal. 1.5 cm low density left adrenal mass. Right hydronephrosis. Mass in the retroperitoneum on the right that extends from kidney into the pelvis and the right inguinal me, measuring up to 6 cm in diameter. Increased density in right femoral and right iliac vein consistent with thrombosis. Few enlarged right sided inguinal lymph nodes measuring up to 1.5 cm. Mild enlargement of the left renal pelvis but no dilation of the left ureter. No focal bone destruction was noted. Current CT AP 11/26/23 reports massive retroperitoneal adenopathy, largest measuring 10 x 10 cm along the left aspect of the aorta, enlarged retroperitoneal lymph nodes, inguinal lymphadenopathy, largest on the right is 8.8 cm, largest on the left approximately 6 cm, prostate gland is 8.9 x 10 cm, right kidney markedly atrophi c. -There is obvious progression of disease from imaging report comparison above. 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 Optimal treatment would include LH-RH antagonist, Androgen deprivation treatment, and rank ligand inhibitor for bone metastases. Uncertain with the patient is going to be capable of managing. Is homecare with direct observation care for medication administration an option? Can he get assistance to be taken too and from Doctor appts? Does pt want to be treated? Patient was having difficulty staying on track with our conversation today. We will see how he is doing tomorrow and ask him what he would like to do in regards to treatment of malignancy. Doctor attests: I performed a history and physical examination of this patient, developed impression and plan of care. Discussed with dictator. I agree with dictators note, documented as a scribe.
--- NOTE | 2023-11-27 10:21 | CA ---
Transthoracic Echo Report Name: Richard Galicia Age: 73 Gender: M : 1950 Exam Date: 11/27/2023 07:53 Exam Location: [place] [facility] Ht (in): 71 Wt (lb): 140 Ordering Physician: Vadim Dewitt MD Attending/Referring Phys: Feeder Loader Lori Zabala RDCS Procedure CPT: Indications: chf Cardiac Hx: Technical Quality: Good Contrast 1: Total Dose (mL): Contrast 2: Total Dose (mL): MEASUREMENTS (Male / Female) Normal Values 2D ECHO LV Diastolic Diameter PLAX 5.6 cm 4.2 - 5.9 / 3.9 - 5.3 cm LV Systolic Diameter PLAX 4.9 cm IVS Diastolic Thickness 1.2 cm 0.6 - 1.0 / 0.6 - 0.9 cm LVPW Diastolic Thickness 1.3 cm 0.6 - 1.0 / 0.6 - 0.9 cm LV Relative Wall Thickness 0.4 RV Internal Dim ED PLAX 3.1 cm LA Systolic Diameter LX 4.3 cm 3.0 - 4.0 / 2.7 - 3.8 cm LV Diastolic Volume MOD 4C 144.2 cm??? LV Systolic Volume MOD 4C 93.7 cm??? LV Ejection Fraction MOD 4C 35.0 % LV Cardiac Index MOD 4C 2787.6 cm???/min???m??? LV Diastolic Length 4C 8.0 cm LV Systolic Length 4C 6.9 cm LV Diastolic Volume MOD 2C 135.6 cm??? LV Systolic Volume MOD 2C 85.3 cm??? LV Ejection Fraction MOD 2C 37.1 % LV Cardiac Index MOD 2C 2783.3 cm???/min???m??? LV Diastolic Length 2C 8.7 cm LV Systolic Length 2C 7.1 cm LA Volume 93.7 cm??? 18 - 58 / 22 - 52 cm??? LA Volume Index 52.8 cm???/m??? 16 - 28 cm???/m??? M-MODE Aortic Root Diameter MM 3.3 cm MV E Point Septal Separation 1.7 cm AV Cusp Separation MM 2.4 cm DOPPLER AV Peak Velocity 170.8 cm/s AV Peak Gradient 11.7 mmHg MV Area PHT 4.8 cm??? Mitral E Point Velocity 146.2 cm/s Mitral A Point Velocity 144.0 cm/s Mitral E to A Ratio 1.0 MV Deceleration Time 157.0 ms MV E' Velocity 3.6 cm/s Mitral E to MV E' Ratio 40.1 TR Peak Velocity 297.5 cm/s TR Peak Gradient 35.4 mmHg Right Ventricular Systolic Press 40.4 mmHg FINDINGS Left Ventricle Left ventricular ejection fraction is estimated at 35-40 %. Left ventricular cavity size normal. Mildly increased septal wall thickness. Moderately reduced global left ventricular systolic function. Right Ventricle Normal right ventricular size. Mild pulmonary hypertension. Right Atrium Normal right atrial size. Left Atrium Mildly increased left atrial diameter. Severely increased left atrial volume. Mildly increased left atrial area. Mitral Valve Structurally normal mitral valve. Trace mitral regurgitation. Aortic Valve Trileaflet aortic valve. No aortic valve stenosis or regurgitation. Tricuspid Valve Structurally normal tricuspid valve. Mild tricuspid regurgitation. Pulmonic Valve Structurally normal pulmonic valve. No pulmonic regurgitation. Pericardium No pericardial effusion. Aorta Normal size aortic root and proximal ascending aorta. CONCLUSIONS Dilated LV with reduced LV systolic function ejection fraction 35% Previewed by: Dr. Sterling Serrano MD (Electronically Signed) Final Date: 27 November 2023 10:20
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
[2023-11-27 20:41] LABS: Glucose,Whole Blood 134 mg/dL (70-110)
[2023-11-28 05:25] LABS: Glucose,Whole Blood 171 mg/dL (70-110)
[2023-11-28] MEDS: hydrALAZINE HCL 20 MG/ML 1 ML VIAL IVP PRN (09:39)
[2023-11-28 11:14] LABS: Basophils # (A) 0.01 X 10*3/uL (0.00-0.10); Basophils % (A) 0.1 %; Eosinophils # (A) 0 X 10*3/uL (0.04-0.35); Eosinophils % (A) 0 %; HCT 27.6 % (39.6-50.0); Lymphocytes # (A) 0.18 X 10*3/uL (0.90-5.00); Lymphocytes % (A) 1.5 %; MCHC 32.6 g/dL (32.0-37.0); Mean Platelet Volume 9.9 FL (9.5-12.2); Monocytes % (A) 1.7 %; NRBC Per 100 WBC 0 X 10*3/uL (0.00-0.01); Neutrophils # (A) 11.64 X 10*3/uL (1.80-7.70); Platelet Count 216 X 10*3/uL (140-440); RDW 16.6 % (11.5-14.5); WBC 12.12 X 10*3/uL (4.50-10.00)
[2023-11-28 11:34] LABS: ALT 22 U/L (10-49); AST 77 U/L (14-35); Albumin 3.2 g/dL (3.8-4.9); Albumin/Globulin Ratio 1.52 Ratio (1.60-3.17); Alkaline Phosphatase 97 U/L (41-126); BUN/Creat Ratio 29.33 Ratio (12.00-20.00); Blood Urea Nitrogen 26.4 mg/dL (9.0-27.0); Calcium 9.4 mg/dL (8.7-10.3); Carbon Dioxide 26.6 mmol/L (21.6-31.8); Chloride 95 mmol/L (96-109); Globulin 2.1 g/dL (1.6-3.3); Glucose 154 mg/dL (70-110); Sodium 134 mmol/L (135-145); Total Bilirubin <0.2 mg/dL (0.3-1.2); Total Protein 5.3 g/dL (6.2-8.2)
[2023-11-28] MEDS: lisinopriL 20 MG TAB PO SCH (12:10)
[2023-11-28] MEDS: METOPROLOL TARTRATE 25 MG TAB PO SCH (12:10)
--- NOTE | 2023-11-28 15:41 | P.PN ---
Subjective Progress Note Date: 11/28/23 Principal diagnosis: Prostate adenocarcinoma Pt was very difficult to arouse today, he was sleeping heavily, snoring. He opened his eyes to loud voice and touch but, quickly went back to sleep. Objective - Vital Signs Vital signs: Vital Signs Temp 98.6 F 11/28/23 14:00 Pulse 78 11/28/23 14:00 Resp 18 11/28/23 14:00 BP 130/76 11/28/23 14:00 Pulse Ox 96 11/28/23 14:00 FiO2 Intake & Output 11/27/23 11/28/23 11/28/23 18:59 06:59 18:59 Intake Total 450 Output Total 575 200 Balance -125 -200 Weight 63.503 kg Intake: Oral 450 Output: Urine 575 200 Other: # Voids 5 - Constitutional Constitutional Comment(s): frail, looks older then stated age General appearance: Present: thin - Respiratory Details: resp unlabored - Cardiovascular Details: radial pulse 2+ - Psychiatric Psychiatric Comment(s): sleeping very heavily - Labs CBC & Chem 7: 11/28/23 05:50 11/28/23 05:50 Labs: Abnormal Lab Results - Last 24 Hours (Table) 11/27/23 11/28/23 11/28/23 Range/Units 20:39 05:24 05:50 WBC 12.12 H (4.50-10.00) X 10*3/uL RBC 3.10 L (4.40-5.60) X 10*6/uL Hgb 9.0 L (13.0-17.0) g/dL Hct 27.6 L (39.6-50.0) % RDW 16.6 H (11.5-14.5) % Immature Gran # 0.09 H (0.00-0.04) X 10*3/uL Neutrophils # 11.64 H (1.80-7.70) X 10*3/uL Lymphocytes # 0.18 L (0.90-5.00) X 10*3/uL Eosinophils # 0 L (0.04-0.35) X 10*3/uL Sodium (135-145) mmol/L Chloride (96-109) mmol/L Anion Gap (4.00-12.00) mmol/L BUN/Creatinine Ratio (12.00-20.00) Ratio Glucose (70-110) mg/dL POC Glucose (mg/dL) 134 H 171 H (70-110) mg/dL Total Bilirubin (0.3-1.2) mg/dL AST (14-35) U/L Total Protein (6.2-8.2) g/dL Albumin (3.8-4.9) g/dL Albumin/Globulin Ratio (1.60-3.17) Ratio 11/28/23 Range/Units 05:50 WBC (4.50-10.00) X 10*3/uL RBC (4.40-5.60) X 10*6/uL Hgb (13.0-17.0) g/dL Hct (39.6-50.0) % RDW (11.5-14.5) % Immature Gran # (0.00-0.04) X 10*3/uL Neutrophils # (1.80-7.70) X 10*3/uL Lymphocytes # (0.90-5.00) X 10*3/uL Eosinophils # (0.04-0.35) X 10*3/uL Sodium 134 L (135-145) mmol/L Chloride 95 L (96-109) mmol/L Anion Gap 12.40 H (4.00-12.00) mmol/L BUN/Creatinine Ratio 29.33 H (12.00-20.00) Ratio Glucose 154 H (70-110) mg/dL POC Glucose (mg/dL) (70-110) mg/dL Total Bilirubin <0.2 L (0.3-1.2) mg/dL AST 77 H (14-35) U/L Total Protein 5.3 L (6.2-8.2) g/dL Albumin 3.2 L (3.8-4.9) g/dL Albumin/Globulin Ratio 1.52 L (1.60-3.17) Ratio Microbiology - Last 24 Hours (Table) 11/26/23 17:45 Blood Culture - Preliminary Blood Assessment and Plan (1) Adenocarcinoma of prostate Current Visit: Yes Status: Acute Priority: High Code(s): C61 - MALIGNANT NEOPLASM OF PROSTATE SNOMED Code(s): 585463809 Plan: Metastatic prostate adenocarcinoma -History of the same. Diagnosed 09/2017 from retroperitoneal biopsy. -Patient has not received treatment for the same. He has not been able to be contacted for appointments. In 2019, when he was seen in again, we worked closely with his PCP because, at that time he was following up with her fairly regularly. Patient reports that he has not seen a doctor since 2019. -PSA ordered CT of the chest 09/05/17 reports no pulmonary embolism, no mediastinal lymphadenopathy, no pleural or pericardial effusions, no mention of any bone lesions. Current CT of the chest reporting bilateral pneumonia, no evidence of PE, multiple lytic osseous lesions within the bony thorax are reported CT AP 09/04/17 liver, spleen, pancreas, gallbladder appear normal. 1.5 cm low density left adrenal mass. Right hydronephrosis. Mass in the retroperitoneum on the right that extends from kidney into the pelvis and the right inguinal me, measuring up to 6 cm in diameter. Increased density in right femoral and right iliac vein consistent with thrombosis. Few enlarged right sided inguinal lymph nodes measuring up to 1.5 cm. Mild enlargement of the left renal pelvis but no dilation of the left ureter. No focal bone destruction was noted. Current CT AP 11/26/23 reports massive retroperitoneal adenopathy, largest measuring 10 x 10 cm along the left aspect of the aorta, enlarged retroperitoneal lymph nodes, inguinal lymphadenopathy, largest on the right is 8.8 cm, largest on the left approximately 6 cm, prostate gland is 8.9 x 10 cm, right kidney markedly atrophic. -There is obvious progression of disease from imaging report comparison above. 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 Optimal treatment would include LH-RH antagonist, Androgen deprivation treatment, and rank ligand inhibitor for bone metastases. -Uncertain if pt understands his diagnosis, recommendations for treatment and prognosis. It has been very difficult to have a conversation with pt. Recommend medical decision making competency assessment and/or Psychiatric evaluation. -Discussed case with CM today. She is only able to assist pt with what he wants assistance with.
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
--- NOTE | 2023-11-28 17:19 | CT ---
EXAMINATION TYPE: CT brain wo con DATE OF EXAM: 11/28/2023 COMPARISON: None HISTORY: AMS CT DLP: 1255.4 mGycm Automated exposure control for dose reduction was used. FINDINGS: The ventricles, basal cisterns and sulci over the convexities within normal limits and there is no ma ss effect or shift of the midline structures. No abnormal density is seen throughout the brain parenchyma. There is no acute intra or extra-axial hemorrhage. The posterior fossa including the brainstem, fourth ventricle and cerebellar pontine angles appear no rmal. Intraorbital contents appear normal and symmetric. There are multiple lytic lesions within the base of the skull including a large lytic expansile lesio n of the left temporal bone. A smaller similar-appearing lesion is identified in the right temporal b one. Small lytic lesions are seen within the clivus, within the dens of C2 and possibly the C1 verte bral segment as well. There is scattered fluid in the mastoid air cells. The left maxillary sinus is markedly hypoplastic a nd opacified. IMPRESSION: 1. No acute bleed or mass effect. 2. Multiple osseous lytic lesions as described above. The findings are high suspicious for metastatic bone disease.
[2023-11-28 20:11] LABS: Glucose,Whole Blood 170 mg/dL (70-110)
--- NOTE | 2023-11-29 04:56 | PN ---
PROGRESS NOTE SUBJECTIVE: 73-year-old white male, difficult to arouse OBJECTIVE: VITAL SIGNS: Temp 98, pulse 78, respiratory rate 18, blood pressure CARDIOVASCULAR: S1, S2. LUNGS: Scattered rhonchi and wheeze. HEMATOLOGY: Negative Homans. pupils equal, round, reactive. NEUROLOGIC: Cranial nerves intact. inguinal lymph nodes, right 8.8 cm, enlarged retroperitoneal lymph node, prostate gland enlarged, suspicious for prostate cancer, status post DVT, blood clot evacuation with stent. Prognosis guarded. Possible discharge home tomorrow. Please see further orders. MMODL / IJN: [id number] /
--- NOTE | 2023-11-29 08:26 | XR ---
EXAMINATION TYPE: XR chest 1V portable DATE OF EXAM: 11/29/2023 CLINICAL HISTORY: Pneumonia. TECHNIQUE: Single AP portable upright view of the chest is obtained. COMPARISON: Chest CT from 3 days earlier earlier FINDINGS: Worsening bilateral opacities greatest in the lower lungs and most prominent in the left l antoni base. Cardiac silhouette size is stable and upper limits of normal with atherosclerotic and ectat ic thoracic aorta. Osseous structures are demineralized. IMPRESSION: Worsening bilateral multifocal acute infiltrates and/or edema.
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
--- NOTE | 2023-11-29 20:58 | PN ---
PROGRESS NOTE SUBJECTIVE: He is on Lopressor for hypertension, Zofran for nausea, Zestril for hypertension, prazosin for hypertension, IV Zosyn. OBJECTIVE: VITAL SIGNS: Temperature 97.5, sat 99 on 2 L, blood pressure 150/60s over 90s, and respiratory rate 16 to 18. CARDIOVASCULAR: S1, S2. LUNGS: Decreased breath sounds x4. HEMATOLOGY: Negative for Homans. PSYCH: Poor mood and affect, will get psych consult. Brain CT was done, showed multiple osteolytic lesions highly suspicious for metastatic bone cancer. Veronica Paez saw the patient also. He has possible metastatic prostate cancer. He has adenocarcinoma of the prostate. Wait for Dr. Mancera to see the patient. 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 Bone metastases, RANK ligand inhibitor. Possible psych consult will be done. Continue him on breathing treatments for COPD. Prognosis guarded. MMODL / IJN: [id number] /
[2023-11-30 12:43] LABS: ALT 24 U/L (10-49); AST 55 U/L (14-35); Albumin 3.1 g/dL (3.8-4.9); Albumin/Globulin Ratio 1.55 Ratio (1.60-3.17); Alkaline Phosphatase 85 U/L (41-126); Blood Urea Nitrogen 25.2 mg/dL (9.0-27.0); Calcium 9.1 mg/dL (8.7-10.3); Carbon Dioxide 25.9 mmol/L (21.6-31.8); Chloride 99 mmol/L (96-109); Glucose 138 mg/dL (70-110); Potassium 4.2 mmol/L (3.5-5.5); Sodium 135 mmol/L (135-145); Total Bilirubin <0.2 mg/dL (0.3-1.2); Total Protein 5.1 g/dL (6.2-8.2)
[2023-11-30 12:54] LABS: Basophils # (A) 0.01 X 10*3/uL (0.00-0.10); Basophils % (A) 0.1 %; Eosinophils # (A) 0 X 10*3/uL (0.04-0.35); Eosinophils % (A) 0 %; HCT 25.8 % (39.6-50.0); HGB 8.1 g/dL (13.0-17.0); Lymphocytes # (A) 0.22 X 10*3/uL (0.90-5.00); Lymphocytes % (A) 2.5 %; MCH 28.6 pg (27.0-32.0); MCHC 31.4 g/dL (32.0-37.0); MCV 91.2 FL (80.0-97.0); Mean Platelet Volume 10.6 FL (9.5-12.2); Monocytes # (A) 0.36 X 10*3/uL (0.20-1.00); NRBC Per 100 WBC 0.04 X 10*3/uL (0.00-0.01); Neutrophils # (A) 8.12 X 10*3/uL (1.80-7.70); Neutrophils % (A) 91.4 %; Platelet Count 188 X 10*3/uL (140-440); RBC 2.83 X 10*6/uL (4.40-5.60); RDW 16.6 % (11.5-14.5); WBC 8.89 X 10*3/uL (4.50-10.00)
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
--- NOTE | 2023-11-30 13:52 | US ---
EXAMINATION TYPE: US venous doppler duplex LE RT DATE OF EXAM: 11/30/2023 12:54 PM COMPARISON: NONE CLINICAL INDICATION: Male, 73 years old with history of r/o DVT; RT leg swellling SIDE PERFORMED: Right TECHNIQUE: The lower extremity deep venous system is examined utilizing real time linear array sonog bernadine with graded compression, doppler sonography and color-flow sonography. VESSELS IMAGED: Common Femoral Vein Deep Femoral Vein Greater Saphenous Vein * Femoral Vein Popliteal Vein Small Saphenous Vein * Proximal Calf Veins (* superficial vessels) Right Leg: Negative for DVT Exam limited by pitting edema and limited patient mobility. Duplicate venous system with several bran gabrielle vessels, all visualized vessels compressed IMPRESSION: The deep venous system of the right lower extremity from the common femoral vein to the p roximal calf veins is patent and compressible with augmentable flow. There is no evidence of right lo wer extremity DVT from the common femoral vein to the proximal calf veins.
[2023-11-30] MEDS: QUEtiapine 25 MG TAB PO SCH (20:14)
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
--- NOTE | 2023-12-01 07:19 | XR ---
EXAMINATION TYPE: XR chest 1V DATE OF EXAM: 12/01/2023 COMPARISON: 11/29/2023 HISTORY: Pneumonia TECHNIQUE: Single frontal view of the chest is obtained. FINDINGS: No change in the diffuse fine interstitial and fluffy small airspace opacities and consolidative re trocardiac opacity. Heart size normal. There is no pneumothorax. There is a remote displaced fractures in mid left clavicle. IMPRESSION: Acute cardiopulmonary disease with no interval change.
--- NOTE | 2023-12-01 11:23 | CT ---
EXAMINATION TYPE: CT chest wo con DATE OF EXAM: 12/01/2023 COMPARISON: CTA chest 11/26/2023 HISTORY: pulmonary infiltrates CT DLP: 321.7 mGycm. Automated Exposure Control for Dose Reduction was Utilized. TECHNIQUE: CT scan of the thorax is performed without IV contrast. FINDINGS: There are bilateral lower lobe partially consolidative infiltrates and small pleural effusions. The l eft lung base is stable compared to previous. There is been mild interval worsening in the degree of lower lobe lung consolidation and pleural fluid on the right. There is persistent moderate cardiomegaly. There is no pneumothorax. Within limits to the exam, there is no mediastinal, hilar or axillary adenopathy. There are multiple lytic osseous lesions involving the dorsal spine and sternum which were seen previ ously and are stable. IMPRESSION: 1. Bibasilar lung infiltrates/pneumonia and small pleural effusions. Stable in the left lower lobe an d worsening in the right lower lobe as described. 2. Stable moderate cardiomegaly. 3. Stable diffuse lytic metastasis
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
[2023-12-02 14:44] VITALS: BMI 19.5
--- NOTE | 2023-12-02 15:06 | P.PN ---
Subjective Progress Note Date: 12/02/23 Principal diagnosis: Prostate adenocarcinoma Pt again, was very difficult to arouse today, sleeping heavily, snoring. He did not open his eyes to loud voice and touch today. Objective - Vital Signs Vital signs: Vital Signs Temp 96.8 F L 12/02/23 13:38 Pulse 86 12/02/23 13:38 Resp 16 12/02/23 13:38 BP 162/84 12/02/23 13:38 Pulse Ox 97 12/02/23 13:38 FiO2 Intake & Output 12/01/23 12/02/23 12/02/23 18:59 06:59 18:59 Intake Total 1500 Output Total 800 Balance 700 Weight 63.503 kg Intake: Intake, IV Titration 1000 Amount Piperacillin-Tazobactam 3 100 .375 gm In Sodium Chloride 0.9% 100 ml @ 25 mls/hr IVPB Q8HR [facility] Rx# :[id number] Sodium Chloride 0.9% 1, 900 000 ml @ 75 mls/hr IV . [id number] IN[facility] Rx#:[id number] Oral 500 Output: Urine 800 Other: Voiding Method Urinal # Voids 7 # Bowel Movements 1 - Constitutional General appearance: Present: no acute distress, thin - Respiratory Respiratory: bilateral: rhonchi - Cardiovascular Rhythm: regular - Peripheral edema leg Peripheral Edema: bilateral: 2+, Pitting - Psychiatric Psychiatric Comment(s): unable to assess - Labs CBC & Chem 7: 11/30/23 04:02 11/30/23 04:02 Labs: Microbiology - Last 24 Hours (Table) 11/26/23 17:45 Blood Culture - Final Blood - Imaging and Cardiology CT scan - chest: report reviewed Assessment and Plan (1) Adenocarcinoma of prostate Current Visit: Yes Status: Acute Priority: High Code(s): C61 - MALIGNANT NEOPLASM OF PROSTATE SNOMED Code(s): 764405333 Plan: Metastatic prostate adenocarcinoma -History of the same. Diagnosed 09/2017 from retroperitoneal biopsy. -Patient has not received treatment for the same. He has not been able to be contacted for appointments. In 2019, when he was seen in again, we worked closely with his PCP because, at that time he was following up with her fairly regularly. Patient reports that he has not seen a doctor since 2019. -PSA reported as >150 -There is obvious progression of disease from imaging report comparisons, as would be expected with no treatment of known malignancy -Recommend treatment with LH-RH antagonist, Androgen deprivation treatment, and rank ligand inhibitor for bone metastases. -In process of obtaining guardianship/medical decision maker for pt. Will discuss diagnosis, prognosis and treatment options with them once set up -Discussed case with CM today.
[2023-12-02] MEDS: SODIUM FERRIC GLUCONAT-SUCROSE 125 MG in SODIUM CHLORIDE 0.9% 100 ML IVPB SCH (20:35)
[2023-12-02] MEDS: METOPROLOL TARTRATE 50 MG TAB PO SCH (20:36)
--- NOTE | 2023-12-02 20:38 | PN ---
PROGRESS NOTE SUBJECTIVE: The patient remains on IV Solu-Medrol, DuoNeb, Lopressor, Protonix, Zosyn. This 73- year-old white male seen by Dr. Gomes . He is lying in bed, appetite was fair. Bilateral lower extremity wounds right thigh, pacing in size compared to left. Doppler ultrasound given negative for DVT, Zosyn. Spoke at length about the code status. Patient was remaining full code, needing some IV Zosyn. Medicines reviewed including Zosyn IV, lisinopril, Solu-Medrol, hydralazine, DuoNeb, metoprolol, morphine, Zosyn, Prazosin, quetiapine. OBJECTIVE: VITAL SIGNS: O2 is 99 on 2 L, pulse is 92, temp 97.4, pulse 69, and respiratory rate 16 to 18. HEENT: Normocephalic, atraumatic. Pupils equal, round, and reactive. LUNGS: Transmitted upper airway sounds. CARDIOVASCULAR: S1, S2. ABDOMEN: Soft, nontender. PSYCH: Fair mood and affect. Creatinine 1.1, BUN is 25.2, white count 8.8. Venous Doppler negative. CT of the brain, multiple osseous lytic lesions. Echo 35% to 44% ejection fraction. CTA, bilateral pneumonia, enlarged prostate gland, metastatic prostate cancer, most likely. Acute hypothermia, improved. Acute hypoxic respiratory failure with bilateral pneumonia, aspiration pneumonia versus lung injury, metastatic prostate cancer, hypertension, chronic lower extremity edema. Consult speech for cognitive status evaluation. Anemia of chronic disease with mild rhabdomyolysis improved. Acute metabolic encephalopathy improved, pneumonia, rehab, full code in clinic, keep the full code status and continue with PT/OT, possibly get outpatient rehab and go to the [facility]. MMODL / IJN: [id number] /
[2023-12-03 10:12] LABS: Basophils # (A) 0.01 X 10*3/uL (0.00-0.10); Basophils % (A) 0.1 %; Eosinophils # (A) 0 X 10*3/uL (0.04-0.35); Eosinophils % (A) 0 %; HCT 26.1 % (39.6-50.0); HGB 8.1 g/dL (13.0-17.0); Lymphocytes # (A) 0.23 X 10*3/uL (0.90-5.00); Lymphocytes % (A) 2.6 %; MCH 28.4 pg (27.0-32.0); MCV 91.6 FL (80.0-97.0); Mean Platelet Volume 10.9 FL (9.5-12.2); Monocytes # (A) 0.37 X 10*3/uL (0.20-1.00); Monocytes % (A) 4.2 %; NRBC Per 100 WBC 0.07 X 10*3/uL (0.00-0.01); Neutrophils # (A) 7.77 X 10*3/uL (1.80-7.70); Neutrophils % (A) 88.8 %; Platelet Count 195 X 10*3/uL (140-440); RBC 2.85 X 10*6/uL (4.40-5.60); RDW 17.5 % (11.5-14.5); WBC 8.76 X 10*3/uL (4.50-10.00)
[2023-12-03 10:56] LABS: ALT 32 U/L (10-49); AST 33 U/L (14-35); Albumin 2.9 g/dL (3.8-4.9); Albumin/Globulin Ratio 1.61 Ratio (1.60-3.17); Alkaline Phosphatase 70 U/L (41-126); BUN/Creat Ratio 24.89 Ratio (12.00-20.00); Blood Urea Nitrogen 22.4 mg/dL (9.0-27.0); Calcium 8.6 mg/dL (8.7-10.3); Carbon Dioxide 28.8 mmol/L (21.6-31.8); Chloride 103 mmol/L (96-109); Globulin 1.8 g/dL (1.6-3.3); Glucose 111 mg/dL (70-110); Potassium 3.6 mmol/L (3.5-5.5); Sodium 139 mmol/L (135-145); Total Bilirubin <0.2 mg/dL (0.3-1.2); Total Protein 4.7 g/dL (6.2-8.2)
[2023-12-03] MEDS: guaiFENesin 600 MG TABLET.ER PO SCH (11:04)
--- NOTE | 2023-12-03 15:52 | P.PN ---
Subjective Progress Note Date: 12/03/23 Principal diagnosis: Prostate adenocarcinoma Today when I entered the room patient was sitting up in the chair. He is exercising his legs. Long conversation with the patient about prostate cancer, treatment of cancer. Reviewed concerns for patient being able to get to and fro m appointments to get treatment for cancer and if treatment for cancer is what he wants. Patient stated "I want to live". I did have to reorient that pt and bring him back to topic of the conversation multiple times. He denied any nausea or pain. Objective - Vital Signs Vital signs: Vital Signs Temp 97.8 F 12/03/23 14:00 Pulse 73 12/03/23 14:00 Resp 20 12/03/23 14:00 BP 165/84 12/03/23 14:00 Pulse Ox 98 12/03/23 14:00 FiO2 Intake & Output 12/02/23 12/03/23 12/03/23 18:59 06:59 18:59 Intake Total 1180 Output Total 750 Balance 1180 -750 Weight 63.503 kg Intake: Intake, IV Titration 700 Amount Piperacillin-Tazobactam 3 100 .375 gm In Sodium Chloride 0.9% 100 ml @ 25 mls/hr IVPB Q8HR INGE Rx# :[id number] Sodium Chloride 0.9% 1, 600 000 ml @ 75 mls/hr IV . [id number] INGE Rx#:[id number] Oral 480 Output: Urine 750 Other: Voiding Method Urinal Urinal Urinal # Voids 4 4 # Bowel Movements 4 - Constitutional General appearance: Present: cooperative, no acute distress, thin - EENT Eyes: Present: anicteric sclerae, EOMI ENT: Present: hearing grossly normal - Respiratory Respiratory: bilateral: rales (Few scattered) - Cardiovascular Rhythm: regular - Peripheral edema leg Peripheral Edema: bilateral: 1+ - Neurologic Neurologic: Present: CNII-XII intact - Musculoskeletal Musculoskeletal: Present: generalized weakness - Psychiatric Psychiatric: Present: A&O x's 3, appropriate affect - Labs CBC & Chem 7: 12/03/23 05:24 12/03/23 05:24 Labs: Abnormal Lab Results - Last 24 Hours (Table) 12/03/23 12/03/23 Range/Units 05:24 05:24 RBC 2.85 L (4.40-5.60) X 10*6/uL Hgb 8.1 L (13.0-17.0) g/dL Hct 26.1 L (39.6-50.0) % MCHC 31.0 L (32.0-37.0) g/dL RDW 17.5 H (11.5-14.5) % Immature Gran # 0.38 H (0.00-0.04) X 10*3/uL Neutrophils # 7.77 H (1.80-7.70) X 10*3/uL Lymphocytes # 0.23 L (0.90-5.00) X 10*3/uL Eosinophils # 0 L (0.04-0.35) X 10*3/uL NRBC/100 WBC Diff 0.07 H (0.00-0.01) X 10*3/uL BUN/Creatinine Ratio 24.89 H (12.00-20.00) Ratio Glucose 111 H (70-110) mg/dL Calcium 8.6 L (8.7-10.3) mg/dL Total Bilirubin <0.2 L (0.3-1.2) mg/dL Total Protein 4.7 L (6.2-8.2) g/dL Albumin 2.9 L (3.8-4.9) g/dL Assessment and Plan (1) Adenocarcinoma of prostate Current Visit: Yes Status: Acute Priority: High Code(s): C61 - MALIGNANT NEOPLASM OF PROSTATE SNOMED Code(s): 534044451 Plan: Metastatic prostate adenocarcinoma -History of the same. Diagnosed 09/2017 from retroperitoneal biopsy. -Patient has not received treatment for the same. He has not been able to be contacted for appointments. In 2019, when he was seen in again, we worked closely with his PCP because, at that time he was following up with her fairly regularly. Patient reports that he has not seen a doctor since 2019. -PSA reported as >150 -There is obvious progression of disease from imaging report comparisons, as would be expected with no treatment of known malignancy -Recommend treatment with LH-RH antagonist, Androgen deprivation treatment, and rank ligand inhibitor for bone metastases. -In process of obtaining guardianship/medical decision maker for pt. Will discuss diagnosis, prognosis, treatment options and what the plan of care will look like once guardianship set up and placement of pt has been decided. -Discussed case with [employer] today.
--- NOTE | 2023-12-04 13:44 | P.PN ---
Subjective Progress Note Date: 12/04/23 Principal diagnosis: Prostate adenocarcinoma Today pt is again alert, able to carry on a reasonable conversation with redirection if he started to go off topic. Denies nausea, SOB, pain. He states he needs his brief changed Objective - Vital Signs Vital signs: Vital Signs Temp 97.8 F 12/04/23 07:44 Pulse 68 12/04/23 08:41 Resp 20 12/04/23 08:41 BP 167/94 12/04/23 07:44 Pulse Ox 98 12/04/23 07:44 FiO2 Intake & Output 12/03/23 12/04/23 12/04/23 18:59 06:59 18:59 Intake Total 1000 Output Total 325 75 800 Balance -325 -75 200 Intake: Intake, IV Titration 1000 Amount Piperacillin-Tazobactam 3 100 .375 gm In Sodium Chloride 0.9% 100 ml @ 25 mls/hr IVPB Q8HR INGE Rx# :[id number] Sodium Chloride 0.9% 1, 900 000 ml @ 75 mls/hr IV . [id number] INGE Rx#:[id number] Output: Urine 325 75 800 Other: Voiding Method Urinal Urinal # Voids 1 - Constitutional General appearance: Present: cooperative, no acute distress, thin - EENT Eyes: Present: anicteric sclerae, EOMI, poor dentition ENT: Present: hearing grossly normal - Respiratory Details: resp even and unlabored - Neurologic Neurologic: Present: CNII-XII intact - Musculoskeletal Musculoskeletal: Present: generalized weakness - Psychiatric Psychiatric: Present: A&O x's 3, appropriate affect - Labs CBC & Chem 7: 12/03/23 05:24 12/03/23 05:24 Assessment and Plan (1) Adenocarcinoma of prostate Current Visit: Yes Status: Acute Priority: High Code(s): C61 - MALIGNANT NEOPLASM OF PROSTATE SNOMED Code(s): 163487870 Plan: Metastatic prostate adenocarcinoma -History of the same. Diagnosed 09/2017 from retroperitoneal biopsy. -Patient has not received treatment for the same. He has not been able to be contacted for appointments. In 2018, when he was seen in again, we worked closely with his PCP because, at that time he was following up with her fairly regularly. Patient reports that he has not seen a doctor since 2019. -PSA reported as >150 -There is obvious progression of disease from imaging report comparisons, increase in PSA. This is as would be expected with no treatment of known malignancy -Recommend treatment with LH-RH antagonist, Androgen deprivation treatment, and rank ligand inhibitor for bone metastases. -In process of obtaining guardianship/medical decision maker for pt. Will need to discuss diagnosis, prognosis, treatment options and what the plan of care will look like once guardianship set up and placement of pt has been decided to ensure that the plan of care/schedule can be adhered to. Attests: I have seen and examined pt, performed H&P, developed impression and plan of care. Discussed with dictator. Agree with documentation, dictated as a scribe.
[2023-12-04] MEDS: MORPHINE SULFATE 4 MG/ML SYRINGE IV PRN (19:47)
[2023-12-05] MEDS ORDERED: SALINE NASAL GEL 14.1 GM TUBE NASAL PRN (01:08)
--- NOTE | 2023-12-05 02:45 | PN ---
PROGRESS NOTE SUBJECTIVE: He is on IV iron , Lopressor for hypertension, Protonix for GERD, DuoNeb for breathing treatment. OBJECTIVE: CARDIOVASCULAR: S1, S2. LUNGS: Scattered wheeze x4. HEMATOLOGY: Negative for Homans. PSYCH: Fair mood and affect. NEUROLOGIC: Alert and oriented x3. VITAL SIGNS: O2 99% on 2 L, temp 97.6, respiratory rate 18 to 20, pulse 60s to 70s, blood pressure 120s to 170s over 60s. HEENT: Pupils equal, round, and reactive. PLAN: Continue on his breathing treatments. He is alert, carries on a reasonable conversation. Vital signs, blood pressure 160 to 170 over 94, temp 97.8. Respiratory rate 18 to 20, pulse 68. A cachectic, he has some blood coming from his nose. GI soft, hematology negative for Homans, psych fair mood and affect. Prostate adenocarcinoma. Continue current treatments. Follow up in next 24 to 48 hours. Gave him nose spray from saline. Prognosis guarded. MMODL / IJN: [id number] /
[2023-12-05] MEDS: HYDROcodone/APAP 5-325MG 1 EACH TAB PO PRN (21:10)
[2023-12-05] MEDS: IPRATROPIUM-ALBUTEROL 3 ML NEB INHALATION SCH (21:11)
[2023-12-05] MEDS: FUROSEMIDE 10 MG/ML 4 ML VIAL IV STA (21:11)
--- NOTE | 2023-12-05 22:45 | PN ---
PROGRESS NOTE MEDICATIONS: 1. Seroquel 12.5 b.i.d. 2. Protonix 40 mg daily. 3. Lopressor 50 b.i.d. 4. Solu-Medrol 20 IV q.8h. 5. Zestril 20 mg daily. 6. Apresoline 10 IV q.6h. 7. Ferrous sulfate IV. His groin is all swollen. His legs are swollen. Possibly some CHF. We are going to cut his IV Hep-Lock. Switch him to oral high-dose Solu-Medrol down also. PT, OT, continues nasal spray for nasal bleeding, saline spray. His hemoglobin is stable at 8.1 today. White count 3.76. Prognosis guarded. Continue current treatment. He has metastatic prostate cancer into his bones, COPD, CHF, hypoxic respiratory failure, generalized weakness, malnourished. Prognosis extremely guarded. Please see further orders. MMODL / IJN: [id number] /
[2023-12-05] MEDS: methylPREDNISolone SOD SUCCI 40 MG/ML 1 ML VIAL IV SCH (23:09)
[2023-12-06] MEDS: PANTOPRAZOLE 40 MG TABLET PO SCH (10:10)
[2023-12-06] MEDS: FUROSEMIDE 40 MG TAB PO SCH (17:20)
--- NOTE | 2023-12-06 21:25 | PN ---
PROGRESS NOTE SUBJECTIVE: He came with hypothermia. He has COPD, metastatic prostate cancer. He had been lined for IV antibiotics. He possibly can go to rehab center soon. hearing apparently scheduled. Hemoglobin is 8.1. He has a CHF. We increased his Lasix last night. He had increased edema. Continue on his breathing treatments for severe COPD, pulmonary hypertension, PT OT. He went to some rehab. Wean down the steroids due to hyperglycemia, which appears to be slowly improving. IV iron has been given daily. Blood pressure is 143/71. His blood pressure medicine was adjusted for hypertension. He is on 92% on 2 L, possibly increase his Lasix long-term as we started him on Farxiga possibly for diabetes and for hypertension and renal protection. Continue on his mood stabilizer etc. PROGNOSIS: Guarded. Restore iron as tolerated. Possibly get him set up for some cardiac treatment for his metastatic prostate cancer. Prognosis guarded. MMODL / IJN: [id number] /
[2023-12-06] MEDS: DAPAGLIFLOZIN PROPANEDIOL 5 MG TABLET PO SCH (21:36)
[2023-12-07 06:32] LABS: Anisocytosis Slight; Basophils % (A) 0 %; Eosinophils % (A) 0 %; HCT 29.2 % (39.0-53.0); HGB 9.6 gm/dL (13.0-17.5); Lymphocytes # (A) 0.2 k/uL (1.0-4.8); Lymphocytes % (A) 2 %; MCHC 32.8 g/dL (31.0-37.0); MCV 91.4 fL (80.0-100.0); Mean Platelet Volume 8.8; Monocytes # (A) 0.4 k/uL (0-1.0); Monocytes % (A) 4 %; Neutrophils # (A) 8.7 k/uL (1.3-7.7); Neutrophils % (A) 93 %; Platelet Count 197 k/uL (150-450); RDW 17.4 % (11.5-15.5); WBC 9.4 k/uL (3.8-10.6)
[2023-12-07 06:44] LABS: ALT 31 U/L (4-49); AST 34 U/L (17-59); African American GFR (CKD) >90 (>60 ml/min/1.73 sqM); Albumin 2.6 g/dL (3.5-5.0); Albumin/Globulin Ratio 1.1; Alkaline Phosphatase 84 U/L (38-126); Anion Gap 3 mmol/L; Blood Urea Nitrogen 22 mg/dL (9-20); Calcium 8.3 mg/dL (8.4-10.2); Carbon Dioxide 36 mmol/L (22-30); Chloride 94 mmol/L (98-107); Globulin 2.4 g/dL; Glucose 94 mg/dL (74-99); Non-African American GFR(CKD) >90 (>60 ml/min/1.73 sqM); Potassium 3.8 mmol/L (3.5-5.1); Sodium 133 mmol/L (137-145); Total Bilirubin 0.4 mg/dL (0.2-1.3)
[2023-12-07 11:46] LABS: Glucose,Whole Blood 171 mg/dL (70-110)
[2023-12-07] MEDS: atenoloL 50 MG TAB PO ONE (16:22)
[2023-12-07] MEDS: METOPROLOL TARTRATE 50 MG TAB PO STA (16:39)
[2023-12-07 17:10] LABS: Glucose,Whole Blood 146 mg/dL (70-110)
--- NOTE | 2023-12-07 17:25 | CT ---
EXAMINATION TYPE: CT chest wo con DATE OF EXAM: 12/07/2023 COMPARISON: 12/01/2023 HISTORY: chest pain CT DLP: 334.1 mGycm, Automated exposure control for dose reduction was used. CONTRAST: Performed injected with 0 mL of Isovue 300. TECHNIQUE: Axial images were obtained at 5 mm thick sections. Reconstructed images are reviewed on [employer] computer in the coronal plane. FINDINGS: Portion of the thyroid visualized is normal. Small moderate bilateral pleural effusions are present. Compressive atelectasis present. There is a 1.7 cm retrocrural lymph node which is enlarged. The ascending aorta diameter at the leve l of the main pulmonary artery is 3.8 cm. The main pulmonary artery diameter at the bifurcation is [address] sections are obtained through the upper abdomen. Left hydronephrosis is present. Right kid harvey appears atrophic. IMPRESSION: 1. Moderate bilateral pleural effusions with adjacent compressive atelectasis. 2. Enlarged retrocrural lymph node
[2023-12-07 17:39] LABS: Anisocytosis Slight; Basophils % (A) 0 %; Eosinophils % (A) 0 %; HCT 30.9 % (39.0-53.0); HGB 10.1 gm/dL (13.0-17.5); Lymphocytes # (A) 0.3 k/uL (1.0-4.8); Lymphocytes % (A) 3 %; MCH 30.3 pg (25.0-35.0); MCHC 32.7 g/dL (31.0-37.0); MCV 92.4 fL (80.0-100.0); Mean Platelet Volume 8.1; Monocytes # (A) 0.4 k/uL (0-1.0); Monocytes % (A) 4 %; Neutrophils # (A) 8.4 k/uL (1.3-7.7); Neutrophils % (A) 92 %; Platelet Count 219 k/uL (150-450); RBC 3.34 m/uL (4.30-5.90); RDW 17.3 % (11.5-15.5); WBC 9.1 k/uL (3.8-10.6)
[2023-12-07 18:07] LABS: ALT 32 U/L (4-49); AST 39 U/L (17-59); African American GFR (CKD) >90 (>60 ml/min/1.73 sqM); Albumin/Globulin Ratio 1.3; Alkaline Phosphatase 100 U/L (38-126); Anion Gap 1 mmol/L; Blood Urea Nitrogen 22 mg/dL (9-20); Calcium 8.2 mg/dL (8.4-10.2); Carbon Dioxide 38 mmol/L (22-30); Chloride 92 mmol/L (98-107); Globulin 2.4 g/dL; Glucose 151 mg/dL (74-99); Magnesium 1.6 mg/dL (1.6-2.3); Non-African American GFR(CKD) >90 (>60 ml/min/1.73 sqM); Sodium 131 mmol/L (137-145); Total Bilirubin 0.4 mg/dL (0.2-1.3); Total Protein 5.4 g/dL (6.3-8.2)
--- NOTE | 2023-12-07 18:14 | US ---
EXAMINATION TYPE: US venous doppler duplex UE LT DATE OF EXAM: 12/07/2023 COMPARISON: NONE CLINICAL INDICATION: Male, 73 years old with history of rule out DVT; Left arm edema SIDE PERFORMED: left Left Arm: Technical limitations due to soft tissue edema. Patient has history of broken left collar bone x 3, unable to visualize subclavian veins. No evidence of DVT as visualized. hypoechoic lesion ( possible lymph node) left neck = 3.0 x 2.0 x 1.7cm IMPRESSION: 1. Visualized deep venous structures without evidence of deep venous thrombosis. 2. Limitation due to body habitus due to prior clavicular fractures. 3. Suspected enlarged lymph node left neck. Follow-up is recommended.
[2023-12-07 18:17] LABS: Potassium 3.6 mmol/L (3.5-5.1)
[2023-12-07] MEDS ORDERED: Magnesium Replacement Protocol 1 EACH MISC MISCELLANE PRN (18:27)
[2023-12-07] MEDS: MAGNESIUM SULFATE-D5W PMX 1 GM in DEXTROSE/WATER 1 100ML.BAG IVPB SCH (18:50)
[2023-12-07 20:01] LABS: Glucose,Whole Blood 184 mg/dL (70-110)
--- NOTE | 2023-12-07 20:30 | PN ---
PROGRESS NOTE SUBJECTIVE: A 73-year-old white male, who has had bad COPD, diabetes, metastatic prostate cancer, hypertension, started on Zestril 20 mg daily for hypertension, Lopressor 50 b.i.d. for hypertension, Protonix for GERD, Seroquel for mood disorder, Farxiga for diabetes, DuoNeb. He looks less disheveled now. OBJECTIVE: VITAL SIGNS: O2 of 96% on 2 L, pulse 70s. CARDIOVASCULAR: S1, S2. LUNGS: Transmitted upper sounds. GI: Soft, nontender. HEMATOLOGY: Negative Homans. ASSESSMENT: He has acute on chronic anemia, hyponatremia, congestive heart failure, chronic obstructive pulmonary disease. We gave him Lasix for scrotum edema and leg edema. Sugars are mid 100s. Bilirubins are negative. Liver enzymes are better. Albumin is low at 2.6. Possibly get dietitian see him for malnutrition as his albumin keeps going down. Continue on his breathing treatment for oxygen. PT, OT. Possible discharge planning on him soon. IV iron. Prognosis guarded. No nasal bleeding seen anymore. He is on nasal saline. MMODL / IJN: [id number] /
[2023-12-07] MEDS ORDERED: atenoloL 50 MG TAB PO SCH (21:00)
--- NOTE | 2023-12-07 21:52 | CT ---
CTA CHEST EXAMINATION TYPE: CT angio chest DATE OF EXAM: 12/07/2023 INDICATION: R/O PE. CT DLP: 381.8 mGycm, Automated exposure control for dose reduction was used. CONTRAST: Patient injected with 100ml mL of Isovue 370. COMPARISON: 12/07/2023, CT abdomen 11/26/2023 TECHNIQUE: CT of the chest is performed on a spiral scan at 2 mm thick sections. Study is performed with intravenous contrast timed for evaluation for pulmonary embolism. This will limit additional po rtions of the evaluation. 3-D MIP images reconstructed by the technologist are reviewed on the compu ter in the coronal and sagittal planes. FINDINGS: No persistent filling defects are evident to suggest an acute pulmonary embolism. No mediastinal or hilar adenopathy enlarged by CT criteria is evident. The ascending aorta diameter at the level of the main pulmonary artery is 3.8 cm. The main pulmonary artery diameter at the bifurcation is 3.5 cm. Moderate bilateral pleural effusions are present with adjacent compressive atelectasis. Limited CT sections were through the upper abdomen. There is a very large matted adenopathy extendin g out of the field of view. This measures approximately 17 x 11 cm. This was present on the CT abdome n study of 11/26/2023 IMPRESSION: 1. No acute pulmonary embolism. 2. Moderate bilateral pleural effusions. 3. Large matted mass within the mid abdomen.
[2023-12-08 05:28] LABS: Glucose,Whole Blood 114 mg/dL (70-110)
[2023-12-08 11:16] LABS: Glucose,Whole Blood 111 mg/dL (70-110)
--- NOTE | 2023-12-08 11:16 | P.CRDCN ---
History of Present Illness Consult date: 12/08/23 Consult reason: chest pain (Frequent PVCs) History of present illness: History of present illness: Hide history of follow-up with Dr. Monterroso I think with her doctor already Patient presented to the hospital on November 26, 2023 and has been admitted and treated for hypothermia, acute hypoxic respiratory failure with multifocal pulmonary infiltrates consider aspiration, metastatic prostate cancer with bony lesions involving the skull and brain, metabolic encephalopathy. Oncology is planning to start patient on treatment and there is guardianship in process as patient is unable to make any of his own decisions. We have been asked to nina luate the patient for chest pain. Apparently yesterday afternoon or evening, patient complained of chest pain and EKG, CTA of the chest, venous duplex of the left lower extremity and troponin were obtained. Patient denies having any chest pain at this time. EKG sinus rhythm with occasional PACs CTA of the chest performed on 12/07/2023 revealed no acute process. Moderate bilateral pleural effusions. Large matted mass within the mid abdomen. Venous duplex of the left lower extremity showed no evidence of DVT. CT of the abdomen pelvis revealed bibasilar lung infiltrates. Massively enlarged prostate gland with massive retroperitoneal and pelvic adenopathy. Multiple lytic lesions of the dorsal spine and pelvis. Markedly atrophic right kidney. WBC 9.1, hemoglobin 10.1, platelet count 219. Sodium 131, potassium 3.6, BUN 22 creatinine 0.76. Blood sugar 151. Troponin negative x 2. Echocardiogram performed 11/26/2023 revealed dilated LV with reduced LV systolic function at 35%. Home cardiac medications: None Review Of Systems: At the time of my exam: Unable to obtain due to patient's mental status Physical examination: Gen: This is a 73-year-old ill appearing male in no acute distress VS: reviewed HEENT: Head is atraumatic, normocephalic. Pupils equal, round. Sclerae is anicteric. NECK: Supple. No JVD. LUNGS: Diminished breath sounds. No intercostal retractions. HEART: Regular rate and rhythm. No murmur. EXTREMITIES: No pedal edema. No calf tenderness. NEUROLOGICAL: Patient is awake. Assessment: Chest pain, resolved Advanced metastatic prostate cancer Metabolic encephalopathy Hypothermia on presentation Acute hypoxic respiratory failure Possible aspiration pneumonia Plan: No further cardiac workup warranted at this time Cardiology will sign off this case and follow on an as-needed basis. Please reconsult for any new concerns. Thank you kindly for this consultation. Nurse practitioner note has been reviewed, I agree with documented findings and plan of care. Patient was seen and examined. Past Medical History Past Medical History: No Reported History Additional Past Medical History / Comment(s): Metastatic prostate cancer History of Any Multi-Drug Resistant Organisms: None Reported Past Surgical History: No Surgical Hx Reported Past Anesthesia/Blood Transfusion Reactions: Unable to Obtain Past Psychological History: No Psychological Hx Reported Smoking Status: Never smoker Past Alcohol Use History: None Reported Past Drug Use History: None Reported Medications and Allergies Home Medications Medication Instructions Recorded Confirmed Type Multivitamins, Thera [Multivitamin 1 tab PO DAILY 11/26/23 11/26/23 History (formulary)] Allergies Allergy/AdvReac Type Severity Reaction Status Date / Time No Known Allergies Allergy Verified 11/26/23 18:17 Physical Exam Vitals: Vital Signs Temp Pulse Pulse Resp BP BP Pulse Ox 12/08/23 09:30 66 12/08/23 09:16 64 93 L 12/08/23 07:09 97.6 F 60 20 167/79 97 12/08/23 00:50 98.6 F 59 L 18 141/82 96 12/07/23 18:45 98.7 F 70 18 199/97 97 12/07/23 16:21 61 12/07/23 16:13 62 12/07/23 16:02 57 L 20 189/84 12/07/23 15:00 97.6 F 58 L 18 173/91 96 12/07/23 12:03 72 12/07/23 11:55 74 Intake and Output 12/07/23 12/08/23 12/08/23 22:59 06:59 14:59 Output Total 1450 2000 Balance -1450 -1999 Output: Urine 1450 1999 Other: Voiding Method Diaper Incontinent Incontinent External Catheter # Voids 2 Results 12/08/23 11:26 12/08/23 11:26 Cardiac Enzymes 12/07/23 12/07/23 Range/Units 17:20 17:20 AST 39 (17-59) U/L Troponin I 0.022 (0.000-0.034) ng/mL CBC 12/07/23 Range/Units 17:20 WBC 9.1 (3.8-10.6) k/uL RBC 3.34 L (4.30-5.90) m/uL Hgb 10.1 L (13.0-17.5) gm/dL Hct 30.9 L (39.0-53.0) % Plt Count 219 (150-450) k/uL Comprehensive Metabolic Panel 12/07/23 Range/Units 17:20 Sodium 131 L (137-145) mmol/L Potassium 3.6 (3.5-5.1) mmol/L Chloride 92 L (98-107) mmol/L Carbon Dioxide 38 H (22-30) mmol/L BUN 22 H (9-20) mg/dL Creatinine 0.76 (0.66-1.25) mg/dL Glucose 151 H (74-99) mg/dL Calcium 8.2 L (8.4-10.2) mg/dL AST 39 (17-59) U/L ALT 32 (4-49) U/L Alkaline Phosphatase 100 (38-126) U/L Total Protein 5.4 L (6.3-8.2) g/dL Albumin 3.0 L (3.5-5.0) g/dL Current Medications Generic Name Dose Route Start Last Admin Trade Name Freq PRN Reason Stop Dose Admin Hydrocodone Bitart/Acetaminophen 1 each 12/05/23 20:58 12/07/23 07:53 Hydrocodone/Apap 5-325mg 1 Each Tab PO 1 each Q6HR PRN Administration Pain Albuterol/Ipratropium 3 ml 11/26/23 19:41 Ipratropium-Albuterol 3 Ml Neb INHALATION RT-Q4H PRN Shortness Of Breath Or Wheezing Albuterol/Ipratropium 3 ml 12/05/23 20:00 12/08/23 09:16 Ipratropium-Albuterol 3 Ml Neb INHALATION 3 ml RT-QID INGE Administration Dapagliflozin 5 mg 12/06/23 17:15 12/08/23 09:16 Dapagliflozin Propanediol 5 Mg Tablet PO 5 mg DAILY INGE Administration Furosemide 40 mg 12/06/23 17:15 12/08/23 09:17 Furosemide 40 Mg Tab PO 40 mg DAILY INGE Administration Guaifenesin 600 mg 12/03/23 11:00 12/08/23 09:17 Guaifenesin 600 Mg Tablet.Er PO 600 mg Q12HR INGE Administration Hydralazine HCl 10 mg 11/28/23 09:31 12/06/23 10:11 Hydralazine Hcl 20 Mg/Ml 1 Ml Vial IVP 10 mg Q6HR PRN Administration Blood Pressure - High Ferric Sodium Gluconate 125 mg 110 mls @ 100 mls/hr 12/02/23 18:00 12/08/23 09:22 / Sodium Chloride IVPB 100 mls/hr DAILY INGE Administration Lisinopril 20 mg 11/28/23 12:15 12/08/23 09:16 Lisinopril 20 Mg Tab PO 20 mg DAILY INGE Administration Methylprednisolone Sodium Succinate 20 mg 12/06/23 00:00 12/08/23 09:15 Methylprednisolone Sod Succi 40 Mg/Ml 1 Ml Vial IV 20 mg Q8HR INGE Administration Metoprolol Tartrate 50 mg 12/02/23 21:00 12/08/23 09:16 Metoprolol Tartrate 50 Mg Tab PO 50 mg BID INGE Administration Miscellaneous Information 1 each 12/07/23 18:27 Magnesium Replacement Protocol 1 Each Misc MISCELLANE DAILY PRN Per Protocol Protocol Morphine Sulfate 4 mg 11/26/23 19:41 12/04/23 19:47 Morphine Sulfate 4 Mg/Ml Syringe IV 4 mg Q4HR PRN Administration Severe Pain (Scale 7 to 10) Naloxone HCl 0.2 mg 11/26/23 19:41 Naloxone 0.4 Mg/Ml 1 Ml Vial IV Q2M PRN Opioid Reversal Ondansetron HCl 4 mg 11/26/23 19:41 Ondansetron 4 Mg/2 Ml Vial IVP Q8HR PRN Nausea And Vomiting Pantoprazole Sodium 40 mg 12/06/23 09:00 12/08/23 09:17 Pantoprazole 40 Mg Tablet PO 40 mg DAILY INGE Administration Quetiapine Fumarate 12.5 mg 11/30/23 21:00 12/08/23 09:17 Quetiapine 25 Mg Tab PO 12.5 mg BID INGE Administration Sodium Chloride 1 applic 12/05/23 01:08 Saline Nasal Gel 14.1 Gm Tube NASAL Q4HR PRN Dry Nasal Passages Intake and Output 12/07/23 12/08/23 12/08/23 22:59 06:59 14:59 Output Total 1450 1999 Balance -1450 -1999 Output: Urine 1450 1999 Other: Voiding Method Diaper Incontinent Incontinent External Catheter # Voids 2 12/07/23 17:20 12/07/23 17:20
[2023-12-08 11:51] LABS: Anisocytosis Slight; Basophils % (A) 0 %; Eosinophils % (A) 0 %; HCT 31.6 % (39.0-53.0); HGB 9.9 gm/dL (13.0-17.5); Hypochromasia Slight; Lymphocytes # (A) 0.3 k/uL (1.0-4.8); Lymphocytes % (A) 3 %; MCH 29.5 pg (25.0-35.0); MCHC 31.4 g/dL (31.0-37.0); MCV 94.1 fL (80.0-100.0); Mean Platelet Volume 8.5; Monocytes # (A) 0.5 k/uL (0-1.0); Monocytes % (A) 4 %; Neutrophils # (A) 10.2 k/uL (1.3-7.7); Neutrophils % (A) 93 %; Platelet Count 222 k/uL (150-450); RBC 3.35 m/uL (4.30-5.90); RDW 17.5 % (11.5-15.5); WBC 11.1 k/uL (3.8-10.6)
[2023-12-08 12:15] LABS: ALT 33 U/L (4-49); AST 35 U/L (17-59); African American GFR (CKD) >90 (>60 ml/min/1.73 sqM); Albumin/Globulin Ratio 1.4; Alkaline Phosphatase 108 U/L (38-126); Blood Urea Nitrogen 23 mg/dL (9-20); Calcium 8.5 mg/dL (8.4-10.2); Chloride 89 mmol/L (98-107); Globulin 2.2 g/dL; Glucose 108 mg/dL (74-99); Non-African American GFR(CKD) 87 (>60 ml/min/1.73 sqM); Sodium 132 mmol/L (137-145); Total Bilirubin 0.4 mg/dL (0.2-1.3); Total Protein 5.2 g/dL (6.3-8.2)
[2023-12-08 12:21] LABS: Anion Gap 0 mmol/L
[2023-12-08 12:58] LABS: Carbon Dioxide 43 mmol/L (22-30)
[2023-12-08 16:37] LABS: Glucose,Whole Blood 203 mg/dL (70-110)
--- NOTE | 2023-12-08 20:19 | PN ---
PROGRESS NOTE SUBJECTIVE: A 73-year-old white male, remains on DuoNeb updrafts, Farxiga for diabetes, IV iron, Lasix 40 daily, Mucinex 600 every 12 hours, Apresoline p.r.n. for hypertension, IV Solu- Medrol, Lopressor for hypertension 50 b.i.d. and for atrial fibrillation, we gave initial dose yesterday. He has some tachycardia, Protonix for GERD, Seroquel for mood swings. He has had some chest pain yesterday with some possible Cardiology consult. OBJECTIVE: VITAL SIGNS: O2 is 93%. Pulse 60 to 70. LUNGS: Transmitted upper sounds. GI: Soft. HEMATOLOGY: 2+ to 3+ edema. LABORATORY DATA: Hemoglobin is 9.9. White count is 11.1. Sugars are low at 100s. Troponin is negative. Cardiology, we ordered a chest CTA due to leg edema and a chest CT due to elevated D-dimer yesterday. A prior clavicle fracture with enlarged lymph nodes. No DVT. Chest CT shows moderate bilateral pleural effusion, atelectasis. Chest CTA, no PE. elevated pulmonary arteries. Prognosis extremely guarded. Cardiology saw him for ectopy chest pain resolved. Metastatic prostate cancer, hepatic encephalopathy, hypothermia on presentation, hypoxic respiratory failure, aspiration pneumonia. PROGNOSIS: Extremely guarded. MMODL / IJN: [id number] /
[2023-12-08 20:21] LABS: Glucose,Whole Blood 120 mg/dL (70-110)
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
[2023-12-09 05:38] LABS: Glucose,Whole Blood 114 mg/dL (70-110)
--- NOTE | 2023-12-09 10:08 | P.CONS ---
History of Present Illness - Reason for Consult Consult date: 12/08/23 Leg wounds Requesting physician: Vadim Dewitt - Chief Complaint Shortness of breath and leg wounds x days - History of Present Illness This is a telehealth visit Patient is a 73 old male with a past medical history difficult for metastatic prostate cancer in this patient presented to hospital about 2 weeks ago for evaluation of weakness mental status changes and acting intraoperatively patient on presentation to the hospital was hypothermic subsequently improvement in his temperature he was mildly hypoxic requiring supplemental oxygen, since admission to the hospital the patient has been managed by pulmonary oncology services, patient did have a bilateral lower extremity swelling to bilateral lower extremity and the patient did have a lower extremity Doppler with no evidence of any DVT patient did have a bilateral lower extremity superficial ulceration prompting this infectious disease consultation after the patient has been in the hospital for about 2 weeks patient also have a CT angiogram of the chest completed last night no PE moderate effusion large medial mass within the mid abdominal patient currently denies having any fever or any chills denies having any chest pain some shortness of breath no nausea vomiting no abdominal pain and denies having any pain to the lower extremity there is no redness or any drainage reported by the nursing staff Review of Systems Positive point and negatives has been mentioned in the HPI, complete review of systems was performed and all other systems are negative Past Medical History Past Medical History: No Reported History Additional Past Medical History / Comment(s): Metastatic prostate cancer History of Any Multi-Drug Resistant Organisms: None Reported Past Surgical History: No Surgical Hx Reported Past Anesthesia/Blood Transfusion Reactions: Unable to Obtain Past Psychological History: No Psychological Hx Reported Smoking Status: Never smoker Past Alcohol Use History: None Reported Past Drug Use History: None Reported Medications and Allergies Home Medications Medication Instructions Recorded Confirmed Type Multivitamins, Thera [Multivitamin 1 tab PO DAILY 11/26/23 11/26/23 History (formulary)] Dapagliflozin Propanediol [Farxiga] 5 mg PO DAILY tab 12/11/23 Rx Furosemide [Lasix] 40 mg PO DAILY tab 12/11/23 Rx Ipratropium-Albuterol Nebulize 3 ml INHALATION RT-QID each 12/11/23 Rx [Duoneb 0.5 mg-3 mg/3 ml Soln] Metoprolol Tartrate [Lopressor] 50 mg PO BID tab 12/11/23 Rx Pantoprazole [Protonix] 40 mg PO DAILY tab 12/11/23 Rx QUEtiapine [SEROquel] 12.5 mg PO BID tab 12/11/23 Rx Saline Nasal Gel [[facility] Nasal Gel] 1 applic NASAL Q4HR PRN each 12/11/23 Rx guaiFENesin [Mucinex] 600 mg PO Q12HR tab 12/11/23 Rx lisinopriL [Zestril] 20 mg PO DAILY tab 12/11/23 Rx Allergies Allergy/AdvReac Type Severity Reaction Status Date / Time No Known Allergies Allergy Verified 11/26/23 18:17 Physical Exam Vitals: Vital Signs Temp Pulse Pulse Resp BP Pulse Ox 12/08/23 15:45 74 12/08/23 15:34 72 12/08/23 13:22 97.8 F 67 18 149/84 93 L 12/08/23 12:00 70 12/08/23 11:50 68 12/08/23 09:30 66 12/08/23 09:16 64 93 L 12/08/23 07:09 97.6 F 60 20 167/79 97 12/08/23 00:50 98.6 F 59 L 18 141/82 96 12/07/23 18:45 98.7 F 70 18 199/97 97 Intake and Output 12/08/23 12/08/23 12/08/23 06:59 14:59 22:59 Output Total 1999 650 500 Balance -2000 -650 -500 Output: Urine 2000 650 500 Other: Voiding Method Incontinent # Voids 2 # Bowel Movements 1 Elderly male lying in bed in no distress Respiratory system unlabored breathing decreased breath sound the base Heart S1-S2 regular Abdominal soft no tenderness Extremities bilateral lower extremity some superficial ulceration no slough tissue no significant redness or drainage Exam completed with the help of [employer]ILITY HAND Results CBC & Chem 7: 12/10/23 06:48 12/10/23 06:48 Labs: Abnormal Lab Results - Last 24 Hours (Table) 12/07/23 12/07/23 12/08/23 Range/Units 17:20 20:00 05:27 WBC (3.8-10.6) k/uL RBC (4.30-5.90) m/uL Hgb (13.0-17.5) gm/dL Hct (39.0-53.0) % RDW (11.5-15.5) % Neutrophils # (1.3-7.7) k/uL Lymphocytes # (1.0-4.8) k/uL Sodium 131 L (137-145) mmol/L Chloride 92 L (98-107) mmol/L Carbon Dioxide 38 H (22-30) mmol/L BUN 22 H (9-20) mg/dL Glucose 151 H (74-99) mg/dL POC Glucose (mg/dL) 184 H 114 H (70-110) mg/dL Calcium 8.2 L (8.4-10.2) mg/dL Total Protein 5.4 L (6.3-8.2) g/dL Albumin 3.0 L (3.5-5.0) g/dL 12/08/23 12/08/23 12/08/23 Range/Units 11:14 11:26 11:26 WBC 11.1 H (3.8-10.6) k/uL RBC 3.35 L (4.30-5.90) m/uL Hgb 9.9 L (13.0-17.5) gm/dL Hct 31.6 L (39.0-53.0) % RDW 17.5 H (11.5-15.5) % Neutrophils # 10.2 H (1.3-7.7) k/uL Lymphocytes # 0.3 L (1.0-4.8) k/uL Sodium 132 L (137-145) mmol/L Chloride 89 L (98-107) mmol/L Carbon Dioxide 43 H* (22-30) mmol/L BUN 23 H (9-20) mg/dL Glucose 108 H (74-99) mg/dL POC Glucose (mg/dL) 111 H (70-110) mg/dL Calcium (8.4-10.2) mg/dL Total Protein 5.2 L (6.3-8.2) g/dL Albumin 3.0 L (3.5-5.0) g/dL 12/08/23 Range/Units 16:35 WBC (3.8-10.6) k/uL RBC (4.30-5.90) m/uL Hgb (13.0-17.5) gm/dL Hct (39.0-53.0) % RDW (11.5-15.5) % Neutrophils # (1.3-7.7) k/uL Lymphocytes # (1.0-4.8) k/uL Sodium (137-145) mmol/L Chloride (98-107) mmol/L Carbon Dioxide (22-30) mmol/L BUN (9-20) mg/dL Glucose (74-99) mg/dL POC Glucose (mg/dL) 203 H (70-110) mg/dL Calcium (8.4-10.2) mg/dL Total Protein (6.3-8.2) g/dL Albumin (3.5-5.0) g/dL Assessment and Plan (1) Open wound of both lower extremities Status: Acute Code(s): S81.801A - UNSPECIFIED OPEN WOUND, RIGHT LOWER LEG, INITIAL ENCOUNTER; S81.802A - UNSPECIFIED OPEN WOUND, LEFT LOWER LEG, INITIAL ENCOUNTER SNOMED Code(s): 16514599 Plan: 1patient with bilateral lower extremity swelling more likely due to his underlying metastatic prostate cancer patient did have Dopplers of bilateral extremity that has been negative for DVT patient likely have some superficial ulceration from ruptured blisters likely from the swelling to the leg currently did have 3+ edema feet and there is no evidence of any secondary cellulitis 2we will recommend local wound care with a dry Aquacel dressing and Juan Jose wrap from just above the toe to below the knee change every 48 hour 3no need for systemic antibiotic therapy We will follow on clinical condition and cultures to further adjust medication if needed Thank you for this consultation we will follow the patient along with you Dictation was produced using [email or web address] dictation software. please excuse any grammatical, word or spelling errors. Time with Patient: Less than 30
[2023-12-09 11:06] LABS: Anisocytosis Slight; Basophils % (A) 0 %; Eosinophils % (A) 0 %; HCT 29.5 % (39.0-53.0); HGB 9.6 gm/dL (13.0-17.5); Hypochromasia Slight; Lymphocytes # (A) 0.2 k/uL (1.0-4.8); Lymphocytes % (A) 2 %; MCH 30.3 pg (25.0-35.0); MCHC 32.5 g/dL (31.0-37.0); MCV 93.4 fL (80.0-100.0); Mean Platelet Volume 8.1; Monocytes # (A) 0.5 k/uL (0-1.0); Monocytes % (A) 4 %; Neutrophils # (A) 10.2 k/uL (1.3-7.7); Neutrophils % (A) 93 %; Platelet Count 223 k/uL (150-450); RBC 3.16 m/uL (4.30-5.90); RDW 17.8 % (11.5-15.5); WBC 10.9 k/uL (3.8-10.6)
[2023-12-09 11:28] LABS: ALT 38 U/L (4-49); AST 39 U/L (17-59); African American GFR (CKD) >90 (>60 ml/min/1.73 sqM); Albumin 2.7 g/dL (3.5-5.0); Albumin/Globulin Ratio 1.2; Alkaline Phosphatase 103 U/L (38-126); Anion Gap 1 mmol/L; Blood Urea Nitrogen 23 mg/dL (9-20); Calcium 8.2 mg/dL (8.4-10.2); Carbon Dioxide 38 mmol/L (22-30); Chloride 92 mmol/L (98-107); Globulin 2.2 g/dL; Glucose 109 mg/dL (74-99); Non-African American GFR(CKD) >90 (>60 ml/min/1.73 sqM); Potassium 3.8 mmol/L (3.5-5.1); Sodium 131 mmol/L (137-145); Total Bilirubin 0.4 mg/dL (0.2-1.3); Total Protein 4.9 g/dL (6.3-8.2)
[2023-12-09 11:48] LABS: Glucose,Whole Blood 106 mg/dL (70-110)
[2023-12-09 16:37] LABS: Glucose,Whole Blood 103 mg/dL (70-110)
[2023-12-09 19:59] LABS: Glucose,Whole Blood 115 mg/dL (70-110)
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
[2023-12-10 05:36] LABS: Glucose,Whole Blood 184 mg/dL (70-110)
[2023-12-10 11:42] LABS: Glucose,Whole Blood 88 mg/dL (70-110)
[2023-12-10 13:07] LABS: Basophils # (A) 0.02 X 10*3/uL (0.00-0.10); Basophils % (A) 0.1 %; Eosinophils # (A) 0 X 10*3/uL (0.04-0.35); Eosinophils % (A) 0 %; HCT 27.8 % (39.6-50.0); HGB 8.8 g/dL (13.0-17.0); Lymphocytes # (A) 0.24 X 10*3/uL (0.90-5.00); Lymphocytes % (A) 1.4 %; MCH 29.1 pg (27.0-32.0); MCHC 31.7 g/dL (32.0-37.0); MCV 92.1 FL (80.0-97.0); Mean Platelet Volume 10.7 FL (9.5-12.2); Monocytes # (A) 0.83 X 10*3/uL (0.20-1.00); Monocytes % (A) 4.8 %; NRBC Per 100 WBC 0 X 10*3/uL (0.00-0.01); Neutrophils # (A) 15.99 X 10*3/uL (1.80-7.70); Neutrophils % (A) 92.3 %; Platelet Count 223 X 10*3/uL (140-440); RBC 3.02 X 10*6/uL (4.40-5.60); RDW 18.6 % (11.5-14.5); WBC 17.32 X 10*3/uL (4.50-10.00)
--- NOTE | 2023-12-10 13:46 | P.PN ---
Subjective Progress Note Date: 12/10/23 I am seeing this patient in follow-up today December 09, 2023, patient originally was admitted back on November 26 after being found outside and was hypothermic and confused. He did spend a brief period of time in the intensive care unit, mostly for external rewarming. Patient was last evaluated by the pulmonary team on December 01, as he was having no significant respiratory symptoms at that time. We were reconsulted yesterday because the patient was found to be hypercarbic on his routine blood work. I did go and reevaluate this patient in room 477, he is alert and oriented. He is actually doing much better than when I seen him on admission. He is not complaining of any respiratory difficulty or symptoms. No signs of CO2 narcosis. He is on room air versus 1 to 2 L at bedtime. SpO2 94% on room air. Patient is known to have metastatic prostate cancer with progression within the abdomen and bone. A chest CTA done 2 days ago did not show any acute pulmonary embolism. It did show moderate bilateral pleural effusions. There is large matted mass within the mid abdomen measuring 17 x 11 cm. No focal infiltrates. Antibiotics have been stopped. Blood cultures negative after 5 days. CBC from yesterday has a WBC count of 11.1, hemoglobin stable at 9.9, hematocrit 31.6, platelets 222. BMP from yesterday has a sodium 132, potassium 4, chloride 99, serum bicarb 43, BUN 23, creatinine 0.88, glucose 120. Troponin 0.027. NT proBNP from several days to ago was 23,000. Patient is currently receiving DuoNebs [id number] and his IV Solu-Medrol is being weaned. He is also receiving Lasix 40 mg daily. On my evaluation he is hemodynamically stable. The patient is seen today December 10, 2023 in follow-up on the regular medical floor. He is currently sitting up in a chair at the bedside. Awake and alert in no acute distress. Maintaining O2 saturations in the 90s on 2 L/min per nasal cannula. No IV fluids. Blood culture had revealed no growth. White count 17.3. Hemoglobin 8.8. Platelets 223. Glucose 88. Most recent bicarb 38. He is continued on DuoNeb ventilations, Solu-Medrol, oral diuretics. Objective - Vital Signs Vital signs: Vital Signs Temp 97.8 F 12/10/23 08:00 Pulse 76 12/10/23 11:35 Resp 18 12/10/23 08:00 BP 160/87 12/10/23 08:00 Pulse Ox 93 L 12/10/23 11:23 FiO2 Intake & Output 12/09/23 12/10/23 12/10/23 18:59 06:59 18:59 Intake Total 480 Output Total 1400 850 Balance -1400 -370 Intake: Oral 480 Output: Urine 1400 850 Other: Voiding Method Diaper Diaper Bedside Commode Incontinent Incontinent Urinal External Catheter External Catheter # Voids 1 # Bowel Movements 1 - Exam GENERAL EXAM: Alert, 73-year-old male, frail, and up in a chair, on 2 L nasal cannula, comfortable in no apparent distress. HEAD: Normocephalic. 2 small abrasions on the top of his head. EYES: Normal reaction of pupils, equal size. NOSE: Clear with pink turbinates. THROAT: No erythema or exudates. NECK: No masses, no JVD. No palpable lymphadenopathy. CHEST: No chest wall deformity. LUNGS: Equal air entry with diminished lung sounds at the bases. No significant wheezing, crackles, rhonchi. No conversational dyspnea. CVS: S1 and S2 normal with no audible murmur, regular rhythm. No extra heart sounds ABDOMEN: No hepatosplenomegaly, active bowel sounds, no guarding or rigidity. SPINE: No scoliosis or deformity SKIN: No rashes CENTRAL NERVOUS SYSTEM: No focal deficits, tone is normal in all 4 extremities. He is alert and fully oriented x 3 at this time. EXTREMITIES: There is bilateral lower extremity edema 2+. No clubbing, or cyanosis. Peripheral pulses are intact. - Labs CBC & Chem 7: 12/10/23 06:48 12/09/23 10:35 Labs: Abnormal Lab Results - Last 24 Hours (Table) 12/09/23 12/10/23 12/10/23 Range/Units 19:58 05:34 06:48 WBC 17.32 H (4.50-10.00) X 10*3/uL RBC 3.02 L (4.40-5.60) X 10*6/uL Hgb 8.8 L (13.0-17.0) g/dL Hct 27.8 L (39.6-50.0) % MCHC 31.7 L (32.0-37.0) g/dL RDW 18.6 H (11.5-14.5) % Immature Gran # 0.24 H (0.00-0.04) X 10*3/uL Neutrophils # 15.99 H (1.80-7.70) X 10*3/uL Lymphocytes # 0.24 L (0.90-5.00) X 10*3/uL Eosinophils # 0 L (0.04-0.35) X 10*3/uL POC Glucose (mg/dL) 115 H 184 H (70-110) mg/dL Assessment and Plan Assessment: Acute hypothermia, improved and the patient is currently normothermic Acute hypoxic respiratory failure, improved. A chest CTA done 2 days ago did not show any acute pulmonary embolism. It did show moderate bilateral pleural effusions with associated compressive atelectasis. No focal pulmonary infiltrates. Empiric antibiotics have been stopped. Blood cultures negative after 5 days. Metastatic prostate cancer with bony lesions involving the skull of the brain and abdomen. The patient was diagnosed and 2017. The patient was recommended to have antiandrogen treatment and and the patient has not received any treatment since. No evidence of any brain lesions based on the CAT scan of the chest pain or evidence of any bleed or stroke. Chest CTA showed a large matted mass within the mid abdomen measuring 17 x 11 cm. Hypercarbia Hypertension Chronic lower extremity edema History of smoking Questionable history of alcoholism Anemia of chronic disease Mild rhabdomyolysis with a CPK of 533 Altered mental status, improving Plan: The patient was seen and evaluated Labs and medications reviewed Stable and on 2 L Continued on bronchodilators Plan is for subacute rehab at [facility] postdischarge I have personally seen and examined the patient, performed the documentation and the assessment and plan as written. Number of minutes spent on the visit: 10.
[2023-12-10 13:59] LABS: ALT 34 U/L (10-49); AST 32 U/L (14-35); Albumin/Globulin Ratio 1.76 Ratio (1.60-3.17); Alkaline Phosphatase 90 U/L (41-126); BUN/Creat Ratio 29.57 Ratio (12.00-20.00); Blood Urea Nitrogen 20.7 mg/dL (9.0-27.0); Calcium 8.8 mg/dL (8.7-10.3); Carbon Dioxide 35.4 mmol/L (21.6-31.8); Chloride 95 mmol/L (96-109); Globulin 1.7 g/dL (1.6-3.3); Glucose 100 mg/dL (70-110); Sodium 141 mmol/L (135-145); Total Bilirubin <0.2 mg/dL (0.3-1.2); Total Protein 4.7 g/dL (6.2-8.2)
--- NOTE | 2023-12-10 14:02 | P.PN ---
Progress Note - Text Progress Note Date: 12/10/23 Plan is for rehab upon discharge. Treatment will be on hold during this time. Will follow up with legal guardian and schedule clinic follow-up upon discharge from rehabilitation
[2023-12-10 16:30] LABS: Glucose,Whole Blood 116 mg/dL (70-110)
--- NOTE | 2023-12-10 18:00 | CDI ---
Documentation Clarification Form Date: From: Rajni Hassan Phone: [phone] Admit Date: 11/26/2023 07:41:00 PM Patient Name: Richard Galicia Visit Number: [id number] Discharge Date: ATTENTION: The Clinical Documentation Specialists (CDI) and [facility] Coding Staff appreciate your assistance in clarifying documentation. Please respond to the clarification below the line at the bottom and electronically sign. The CDI & [facility] Coding staff will review the response and follow-up if needed. Please note: Queries are made part of the Legal Health Record. If you have any questions, please contact the author of this message via ITS. Dr. Vadim Dewitt The patient has WBC of 12.12 and Temp. of 87.1. Based on this information and the findings below, is there an additional diagnosis that is clinically appropriate for this patient? History/Risk Factors: " patient was brought in yesterday by EMS, he was hypothermic, reportedly found outside. Patient is a 73-year-old white male, past medical history is largely unknown, the patient is a very poor historian. Apparently, EMS reported finding him outside, confused, they brought him into his house, in which the heat was not working." - Per Pulmonology Consult on 11/27 Clinical Indicators: "Chest x-ray on arrival mild cardiomegaly, possible mild pulmonary vascular congestion, and basilar infiltrates, greater on the left." "LUNGS: Equal air entry with diminished lung sounds at the bases. No significant wheezing, crackles, rhonchi." "Acute hypoxemic respiratory failure, possibly secondary to bibasilar community acquired pneumonia and mild CHF exacerbation" - Per Pulmonary Consult note on 11/27 WBC: 11/26 - 11.2, 11/27 - 10.0, 11/28 - 12.12 Procalcitonin: 11/27 - 0.55 Lactic acid: 11/26 - 1.8 Blood cultures: Drawn 11/26 - Final: no growth after 5 days Vitals signs: 11/26 - Temp. 87.1, HR 68, RR 18, BP 150/84, 95% on Room Air Treatment: Per Pulmonology note on 11/27 "Continue IV fluids at 75 mL an hour Empiric antibiotic coverage with IV Zosyn DuoNeb updrafts [id number] External warming has been applied and the patient is normothermic. No significant hypotension." Is there an additional diagnosis that is clinically appropriate for this patient? [ ] Sepsis, present on admission [ ] Sepsis ruled out [ ] Severe Sepsis with organ failure [ ] Other, please specify [ ] Unable to determine SIRS Criteria: 2 or more of the following may indicate SIRS Temperature < 96.8F (36C) or > 101.0F (38.3C) Heart Rate > 90 bpm Respiratory Rate > 20 breaths/min or PaCO2 < 32 mmHg White Blood Cell Count > 12,000 or < 4,000 cells/mm3 or > 10% bands MTDD
[2023-12-10 20:19] LABS: Glucose,Whole Blood 112 mg/dL (70-110)
[2023-12-11 06:17] LABS: Glucose,Whole Blood 116 mg/dL (70-110)
[2023-12-11 07:34] VITALS: BP 143/81; TEMP 97.6
[2023-12-11 09:32] VITALS: RESP 16
[2023-12-11 10:00] VITALS: PULSE 72
--- NOTE | 2023-12-11 10:04 | DS ---
DISCHARGE SUMMARY DISCHARGE MEDICATIONS: 1. [place] nasal gel topically every 4 hours p.r.n. for dry nasal passages. 2. Farxiga 5 mg daily. 3. Lopressor 50 b.i.d. 4. Mucinex 600 q.12. 5. b.i.d. 6. Zestril 20 daily. 7. DuoNeb q.i.d. 8. Lasix 20 daily. 9. Protonix 40 daily. 10.Multivitamins daily. 11.Metoprolol 50 twice a day b.i.d. 12.Lisinopril 20 mg daily. 13.Seroquel 25 mg at night. 14.Lasix 40 mg daily p.o. 15.Protonix 40 mg daily. 16.Guaifenesin for cough 600 mg every 8-12 hours p.r.n. 17.Multivitamin daily. 18.DuoNeb updrafts q.i.d. around the clock, do not stop these. 19.Oxygen 2 L around the clock, do not stop that either, continue with oxygen DuoNebs. PT and OT for generalized weakness. Follow up in the office maybe in 2-[address] Dewitt. Follow up with Oncology for cancer treatment for prostate. Otherwise continue current treatments. Condition stable. Prognosis is guarded at best. Diet will be as tolerated. Aspiration precautions will be needed. DIAGNOSES: 1. Altered mental status. 2. Metastatic prostate cancer of significant nature. 3. COPD exacerbation. 4. Acute hypothermia, on admission, treated with . 5. Acute hypoxic respiratory failure secondary to hypercapnic respiratory failure. Metastatic prostate cancer with bony lesions and abdomen diagnosed in 2006. He will follow up with the oncologist for this, Dr. Hinds. Chest CTA showed a large matted mass in the mid abdomen, 12 x 11 cm. He has acute on chronic diastolic heart failure, anemia of chronic disease, nicotine addiction. He has generalized weakness and leg swelling from hypoalbuminemia, pulmonary hypertension. Prognosis guarded. Continue current treatments. GERD precautions, etc. MMODL / IJN: [id number] /
[2023-12-11 11:30] LABS: Glucose,Whole Blood 117 mg/dL (70-110)
--- NOTE | 2023-12-11 13:46 | P.PN ---
Subjective Progress Note Date: 12/11/23 I am seeing this patient in follow-up today December 09, 2023, patient originally was admitted back on November 26 after being found outside and was hypothermic and confused. He did spend a brief period of time in the intensive care unit, mostly for external rewarming. Patient was last evaluated by the pulmonary team on December 01, as he was having no significant respiratory symptoms at that time. We were reconsulted yesterday because the patient was found to be hypercarbic on his routine blood work. I did go and reevaluate this patient in room 477, he is alert and oriented. He is actually doing much better than when I seen him on admission. He is not complaining of any respiratory difficulty or symptoms. No signs of CO2 narcosis. He is on room air versus 1 to 2 L at bedtime. SpO2 94% on room air. Patient is known to have metastatic prostate cancer with progression within the abdomen and bone. A chest CTA done 2 days ago did not show any acute pulmonary embolism. It did show moderate bilateral pleural effusions. There is large matted mass within the mid abdomen measuring 17 x 11 cm. No focal infiltrates. Antibiotics have been stopped. Blood cultures negative after 5 days. CBC from yesterday has a WBC count of 11.1, hemoglobin stable at 9.9, hematocrit 31.6, platelets 222. BMP from yesterday has a sodium 132, potassium 4, chloride 99, serum bicarb 43, BUN 23, creatinine 0.88, glucose 120. Troponin 0.027. NT proBNP from several days to ago was 23,000. Patient is currently receiving DuoNebs [id number] and his IV Solu-Medrol is being weaned. He is also receiving Lasix 40 mg daily. On my evaluation he is hemodynamically stable. The patient is seen today December 10, 2023 in follow-up on the regular medical floor. He is currently sitting up in a chair at the bedside. Awake and alert in no acute distress. Maintaining O2 saturations in the 90s on 2 L/min per nasal cannula. No IV fluids. Blood culture had revealed no growth. White count 17.3. Hemoglobin 8.8. Platelets 223. Glucose 88. Most recent bicarb 38. He is continued on DuoNeb ventilations, Solu-Medrol, oral diuretics. The patient is seen today December 11, 2023 and follow-up on the regular medical floor. He is awake and alert in no acute distress. Sitting up in a chair at the bedside. No worsening shortness of breath, cough or congestion. Maintaining O2 saturations in the 90s on 2 L nasal cannula. His last bicarbonate level was 35. Blood glucose 117. He is continued on bronchodilators, oral diuretics, steroids. Objective - Vital Signs Vital signs: Vital Signs Temp 97.6 F 12/11/23 07:20 Pulse 72 12/11/23 09:33 Resp 16 12/11/23 09:33 BP 143/81 12/11/23 07:20 Pulse Ox 90 L 12/11/23 09:26 FiO2 Intake & Output 12/10/23 12/11/23 12/11/23 18:59 06:59 18:59 Intake Total 480 Output Total 600 400 400 Balance -600 80 -400 Intake: Oral 480 Output: Urine 600 400 400 Other: Voiding Method Bedside Commode Bedside Commode Urinal Urinal # Voids 1 1 # Bowel Movements 1 1 1 - Exam GENERAL EXAM: Alert, 73-year-old male, on 2 L nasal cannula, comfortable in no apparent distress. HEAD: Normocephalic. 2 small abrasions on the top of his head. EYES: Normal reaction of pupils, equal size. NOSE: Clear with pink turbinates. THROAT: No erythema or exudates. NECK: No masses, no JVD. No palpable lymphadenopathy. CHEST: No chest wall deformity. LUNGS: Equal air entry with diminished lung sounds at the bases. No significant wheezing, crackles, rhonchi. CVS: S1 and S2 normal with no audible murmur, regular rhythm. No extra heart sounds ABDOMEN: No hepatosplenomegaly, active bowel sounds, no guarding or rigidity. SPINE: No scoliosis or deformity SKIN: No rashes CENTRAL NERVOUS SYSTEM: No focal deficits, tone is normal in all 4 extremities. He is alert and fully oriented x 3 at this time. EXTREMITIES: There is bilateral lower extremity edema 2+. No clubbing, or cyanosis. Peripheral pulses are intact. - Labs CBC & Chem 7: 12/10/23 06:48 12/10/23 06:48 Labs: Abnormal Lab Results - Last 24 Hours (Table) 12/10/23 12/10/23 12/10/23 Range/Units 06:48 16:30 20:16 Chloride 95 L (96-109) mmol/L Carbon Dioxide 35.4 H (21.6-31.8) mmol/L BUN/Creatinine Ratio 29.57 H (12.00-20.00) Ratio POC Glucose (mg/dL) 116 H 112 H (70-110) mg/dL Total Bilirubin <0.2 L (0.3-1.2) mg/dL Total Protein 4.7 L (6.2-8.2) g/dL Albumin 3.0 L (3.8-4.9) g/dL 12/11/23 12/11/23 Range/Units 06:15 11:29 Chloride (96-109) mmol/L Carbon Dioxide (21.6-31.8) mmol/L BUN/Creatinine Ratio (12.00-20.00) Ratio POC Glucose (mg/dL) 116 H 117 H (70-110) mg/dL Total Bilirubin (0.3-1.2) mg/dL Total Protein (6.2-8.2) g/dL Albumin (3.8-4.9) g/dL Assessment and Plan Assessment: Acute hypothermia, improved and the patient is currently normothermic Acute hypoxic respiratory failure, improved. A chest CTA done 2 days ago did not show any acute pulmonary embolism. It did show moderate bilateral pleural effusions with associated compressive atelectasis. No focal pulmonary infiltrates. Empiric antibiotics have been stopped. Blood cultures negative after 5 days. Metastatic prostate cancer with bony lesions involving the skull of the brain and abdomen. The patient was diagnosed and 2017. The patient was recommended to have antiandrogen treatment and and the patient has not received any treatment since. No evidence of any brain lesions based on the CAT scan of the chest pain or evidence of any bleed or stroke. Chest CTA showed a large matted mass within the mid abdomen measuring 17 x 11 cm. Hypercarbia, improved currently 35 Hypertension Chronic lower extremity edema History of smoking Questionable history of alcoholism Anemia of chronic disease Mild rhabdomyolysis with a CPK of 533 Altered mental status, improving Plan: The patient was seen and evaluated Labs and medications reviewed Stable and on 2 L Plan is for [facility] today I have personally seen and examined the patient, performed the documentation and the assessment and plan as written. Number of minutes spent on the visit: 10.
--- NOTE | 2023-12-17 14:51 | P.PN ---
Subjective Progress Note Date: 12/09/23 Principal diagnosis: Reason for follow-up is bilateral lower extremity wounds Patient is a 73 old male with a past medical history difficult for metastatic prostate cancer in this patient presented to hospital for evaluation of weakness mental status changes and has been manage by multiple energy sales consultant patient also noticed bilateral lower extremity wound probably this infectious disease consultation. On today's evaluation that is 12/09/2023, patient denies having any fever or any chills, the patient is currently breathing comfortably on 2 L nasal cannula oxygen, denies any chest pain occasional cough denies any worsening pain to bilateral lower extremity. Patient did have white count of 10.9, creatinine 0.78 Objective - Vital Signs Vital signs: Vital Signs Temp 97.7 F 12/09/23 13:23 Pulse 77 12/09/23 13:23 Resp 19 12/09/23 13:23 BP 114/74 12/09/23 13:23 Pulse Ox 94 L 12/09/23 13:23 FiO2 Intake & Output 12/08/23 12/09/23 12/09/23 18:59 06:59 18:59 Output Total 1150 1400 900 Balance -1150 -1400 -900 Output: Urine 1150 1400 900 Other: Voiding Method Incontinent Diaper Diaper Incontinent Incontinent External Catheter External Catheter # Voids 2 # Bowel Movements 1 - Exam GENERAL DESCRIPTION: An elderly male lying in bed in no distress RESPIRATORY SYSTEM: Unlabored breathing , decreased breath sounds at bases HEART: S1 S2 regular rate and rhythm , ABDOMEN: Soft , no tenderness EXTREMITIES: Bilateral lower extremity currently wrapped in Juan Jose wrap no drainage on the dressing - Labs CBC & Chem 7: 12/10/23 06:48 12/10/23 06:48 Labs: Abnormal Lab Results - Last 24 Hours (Table) 12/08/23 12/08/23 12/09/23 Range/Units 16:35 20:20 05:36 WBC (3.8-10.6) k/uL RBC (4.30-5.90) m/uL Hgb (13.0-17.5) gm/dL Hct (39.0-53.0) % RDW (11.5-15.5) % Neutrophils # (1.3-7.7) k/uL Lymphocytes # (1.0-4.8) k/uL Sodium (137-145) mmol/L Chloride (98-107) mmol/L Carbon Dioxide (22-30) mmol/L BUN (9-20) mg/dL Glucose (74-99) mg/dL POC Glucose (mg/dL) 203 H 120 H 114 H (70-110) mg/dL Calcium (8.4-10.2) mg/dL Total Protein (6.3-8.2) g/dL Albumin (3.5-5.0) g/dL 12/09/23 12/09/23 Range/Units 10:35 10:35 WBC 10.9 H (3.8-10.6) k/uL RBC 3.16 L (4.30-5.90) m/uL Hgb 9.6 L (13.0-17.5) gm/dL Hct 29.5 L (39.0-53.0) % RDW 17.8 H (11.5-15.5) % Neutrophils # 10.2 H (1.3-7.7) k/uL Lymphocytes # 0.2 L (1.0-4.8) k/uL Sodium 131 L (137-145) mmol/L Chloride 92 L (98-107) mmol/L Carbon Dioxide 38 H (22-30) mmol/L BUN 23 H (9-20) mg/dL Glucose 109 H (74-99) mg/dL POC Glucose (mg/dL) (70-110) mg/dL Calcium 8.2 L (8.4-10.2) mg/dL Total Protein 4.9 L (6.3-8.2) g/dL Albumin 2.7 L (3.5-5.0) g/dL Assessment and Plan (1) Open wound of both lower extremities Status: Acute Code(s): S81.801A - UNSPECIFIED OPEN WOUND, RIGHT LOWER LEG, INITIAL ENCOUNTER; S81.802A - UNSPECIFIED OPEN WOUND, LEFT LOWER LEG, INITIAL ENCOUNTER SNOMED Code(s): 44012685 Plan: 1patient with bilateral lower extremity swelling more likely due to his underlying metastatic prostate cancer patient did have Dopplers of bilateral extremity that has been negative for DVT patient likely have some superficial ulceration from ruptured blisters likely from the swelling to the leg currently did have 3+ edema feet and there is no evidence of any secondary cellulitis 2patient to continue with dry Aquacel dressing and Juan Jose wrap from just above the toe to below the knee change every 48 hour Dictation was produced using [employer] dictation software. please excuse any grammatical, word or spelling errors. Time with Patient: Less than 30
--- NOTE | 2023-12-17 14:52 | P.PN ---
Subjective Progress Note Date: 12/10/23 Principal diagnosis: Reason for follow-up is bilateral lower extremity wounds Patient is a 73 old male with a past medical history difficult for metastatic prostate cancer in this patient presented to hospital for evaluation of weakness mental status changes and has been manage by multiple financial planning consultant patient also noticed bilateral lower extremity wound probably this infectious disease consultation. On today's evaluation that is 12/10/2023 the patient continues to be afebrile, patient is breathing comfortably on 2 L nasal cannula oxygen, the patient denies chest pain shortness of breath and no significant cough, patient denies nausea no vomiting, no abdominal pain and no diarrhea. Denies any worsening pain to the lower extremity Patient did have white count of 17.32, creatinine 0.7 Objective - Vital Signs Vital signs: Vital Signs Temp 97.8 F 12/10/23 08:00 Pulse 76 12/10/23 11:35 Resp 18 12/10/23 08:00 BP 160/87 12/10/23 08:00 Pulse Ox 93 L 12/10/23 11:23 FiO2 Intake & Output 12/09/23 12/10/23 12/10/23 18:59 06:59 18:59 Intake Total 480 Output Total 1400 850 Balance -1400 -370 Intake: Oral 480 Output: Urine 1400 850 Other: Voiding Method Diaper Diaper Bedside Commode Incontinent Incontinent Urinal External Catheter External Catheter # Voids 1 # Bowel Movements 1 - Exam GENERAL DESCRIPTION: An elderly male lying in bed in no distress RESPIRATORY SYSTEM: Unlabored breathing , decreased breath sounds at bases HEART: S1 S2 regular rate and rhythm , ABDOMEN: Soft , no tenderness EXTREMITIES: Bilateral lower extremity currently wrapped in Juan Jose wrap no drainage on the dressing - Labs CBC & Chem 7: 12/10/23 06:48 12/10/23 06:48 Labs: Abnormal Lab Results - Last 24 Hours (Table) 12/09/23 12/10/23 12/10/23 Range/Units 19:58 05:34 06:48 WBC 17.32 H (4.50-10.00) X 10*3/uL RBC 3.02 L (4.40-5.60) X 10*6/uL Hgb 8.8 L (13.0-17.0) g/dL Hct 27.8 L (39.6-50.0) % MCHC 31.7 L (32.0-37.0) g/dL RDW 18.6 H (11.5-14.5) % Immature Gran # 0.24 H (0.00-0.04) X 10*3/uL Neutrophils # 15.99 H (1.80-7.70) X 10*3/uL Lymphocytes # 0.24 L (0.90-5.00) X 10*3/uL Eosinophils # 0 L (0.04-0.35) X 10*3/uL Chloride (96-109) mmol/L Carbon Dioxide (21.6-31.8) mmol/L BUN/Creatinine Ratio (12.00-20.00) Ratio POC Glucose (mg/dL) 115 H 184 H (70-110) mg/dL Total Bilirubin (0.3-1.2) mg/dL Total Protein (6.2-8.2) g/dL Albumin (3.8-4.9) g/dL 12/10/23 Range/Units 06:48 WBC (4.50-10.00) X 10*3/uL RBC (4.40-5.60) X 10*6/uL Hgb (13.0-17.0) g/dL Hct (39.6-50.0) % MCHC (32.0-37.0) g/dL RDW (11.5-14.5) % Immature Gran # (0.00-0.04) X 10*3/uL Neutrophils # (1.80-7.70) X 10*3/uL Lymphocytes # (0.90-5.00) X 10*3/uL Eosinophils # (0.04-0.35) X 10*3/uL Chloride 95 L (96-109) mmol/L Carbon Dioxide 35.4 H (21.6-31.8) mmol/L BUN/Creatinine Ratio 29.57 H (12.00-20.00) Ratio POC Glucose (mg/dL) (70-110) mg/dL Total Bilirubin <0.2 L (0.3-1.2) mg/dL Total Protein 4.7 L (6.2-8.2) g/dL Albumin 3.0 L (3.8-4.9) g/dL Assessment and Plan (1) Open wound of both lower extremities Status: Acute Code(s): S81.801A - UNSPECIFIED OPEN WOUND, RIGHT LOWER LEG, INITIAL ENCOUNTER; S81.802A - UNSPECIFIED OPEN WOUND, LEFT LOWER LEG, INITIAL ENCOUNTER SNOMED Code(s): 45203712 Plan: 1patient with bilateral lower extremity swelling more likely due to his underlying metastatic prostate cancer patient did have Dopplers of bilateral extremity that has been negative for DVT patient likely have some superficial ulceration from ruptured blisters likely from the swelling to the leg currently did have 3+ edema feet and there is no evidence of any secondary cellulitis 2patient to continue with dry Aquacel dressing and Juan Jose wrap from just above the toe to below the knee change every 48 hour, and no need for systemic antibiotic therapy Dictation was produced using [employer] dictation software. please excuse any grammatical, word or spelling errors. Time with Patient: Less than 30
--- NOTE | 2023-12-17 14:52 | P.PN ---
Subjective Progress Note Date: 12/11/23 Principal diagnosis: Reason for follow-up is bilateral lower extremity wounds Patient is a 73 old male with a past medical history difficult for metastatic prostate cancer in this patient presented to hospital for evaluation of weakness mental status changes and has been manage by multiple [facility] consultant patient also noticed bilateral lower extremity wound probably this infectious disease consultation. On today's evaluation that is 12/11/2022, the patient remains to be afebrile, patient is currently breathing comfortably on 2 L nasal cannula oxygen, the patient denies chest pain or cough, patient denies abdominal pain, no nausea no vomiting or any diarrhea. Patient denies pain to the bilateral lower extremity wound area No new labs obtained today Objective - Vital Signs Vital signs: Vital Signs Temp 97.6 F 12/11/23 07:20 Pulse 72 12/11/23 09:33 Resp 16 12/11/23 09:33 BP 143/81 12/11/23 07:20 Pulse Ox 90 L 12/11/23 09:26 FiO2 Intake & Output 12/10/23 12/11/23 12/11/23 18:59 06:59 18:59 Intake Total 480 Output Total 600 400 400 Balance -600 80 -400 Intake: Oral 480 Output: Urine 600 400 400 Other: Voiding Method Bedside Commode Bedside Commode Urinal Urinal # Voids 1 1 # Bowel Movements 1 1 1 - Exam GENERAL DESCRIPTION: An elderly male lying in bed in no distress RESPIRATORY SYSTEM: Unlabored breathing , decreased breath sounds at bases HEART: S1 S2 regular rate and rhythm , ABDOMEN: Soft , no tenderness EXTREMITIES: Bilateral lower extremity currently wrapped in Juan Jose wrap no drainage on the dressing - Labs CBC & Chem 7: 12/10/23 06:48 12/10/23 06:48 Labs: Abnormal Lab Results - Last 24 Hours (Table) 12/10/23 12/10/23 12/10/23 Range/Units 06:48 06:48 16:30 WBC 17.32 H (4.50-10.00) X 10*3/uL RBC 3.02 L (4.40-5.60) X 10*6/uL Hgb 8.8 L (13.0-17.0) g/dL Hct 27.8 L (39.6-50.0) % MCHC 31.7 L (32.0-37.0) g/dL RDW 18.6 H (11.5-14.5) % Immature Gran # 0.24 H (0.00-0.04) X 10*3/uL Neutrophils # 15.99 H (1.80-7.70) X 10*3/uL Lymphocytes # 0.24 L (0.90-5.00) X 10*3/uL Eosinophils # 0 L (0.04-0.35) X 10*3/uL Chloride 95 L (96-109) mmol/L Carbon Dioxide 35.4 H (21.6-31.8) mmol/L BUN/Creatinine Ratio 29.57 H (12.00-20.00) Ratio POC Glucose (mg/dL) 116 H (70-110) mg/dL Total Bilirubin <0.2 L (0.3-1.2) mg/dL Total Protein 4.7 L (6.2-8.2) g/dL Albumin 3.0 L (3.8-4.9) g/dL 12/10/23 12/11/23 12/11/23 Range/Units 20:16 06:15 11:29 WBC (4.50-10.00) X 10*3/uL RBC (4.40-5.60) X 10*6/uL Hgb (13.0-17.0) g/dL Hct (39.6-50.0) % MCHC (32.0-37.0) g/dL RDW (11.5-14.5) % Immature Gran # (0.00-0.04) X 10*3/uL Neutrophils # (1.80-7.70) X 10*3/uL Lymphocytes # (0.90-5.00) X 10*3/uL Eosinophils # (0.04-0.35) X 10*3/uL Chloride (96-109) mmol/L Carbon Dioxide (21.6-31.8) mmol/L BUN/Creatinine Ratio (12.00-20.00) Ratio POC Glucose (mg/dL) 112 H 116 H 117 H (70-110) mg/dL Total Bilirubin (0.3-1.2) mg/dL Total Protein (6.2-8.2) g/dL Albumin (3.8-4.9) g/dL Assessment and Plan (1) Open wound of both lower extremities Status: Acute Code(s): S81.801A - UNSPECIFIED OPEN WOUND, RIGHT LOWER LEG, INITIAL ENCOUNTER; S81.802A - UNSPECIFIED OPEN WOUND, LEFT LOWER LEG, INITIAL ENCOUNTER SNOMED Code(s): 42766044 Plan: 1patient with bilateral lower extremity swelling more likely due to his underlying metastatic prostate cancer patient did have Dopplers of bilateral extremity that has been negative for DVT patient likely have some superficial ulceration from ruptured blisters likely from the swelling to the leg currently did have 3+ edema feet and there is no evidence of any secondary cellulitis 2patient to continue with dry Aquacel dressing and Juan Jose wrap from just above the toe to below the knee change every 48 hour, and there is no need for any antibiotics on discharge Dictation was produced using [employer] dictation software. please excuse any grammatical, word or spelling errors. Time with Patient: Less than 30
--- NOTE | 2024-01-05 13:52 | PN ---
PROGRESS NOTE Sepsis ruled in. MMODL / IJN: [id number] /
== END 2023-12-11 13:31 | DRG 871 ==
LOC: EC 16:57 → 2SICU 19:41 → EEVIPCON 19:41 → 4SSUR 11-27 04:43
PROVIDERS: ADMIT Family Medicine; ATTEND Family Medicine
PROC: 05H933Z Insertion of Infusion Device into Right Brachial Vein, Percutaneous Approach (ICD-10-PCS; principal; 2023-11-26)
DX: A41.9 Sepsis, unspecified organism (principal); G93.41 Metabolic encephalopathy; J96.01 Acute respiratory failure with hypoxia; J96.21 Acute and chronic respiratory failure with hypoxia; J69.0 Pneumonitis due to inhalation of food and vomit; C79.51 Secondary malignant neoplasm of bone; M62.82 Rhabdomyolysis; J44.0 Chronic obstructive pulmonary disease with (acute) lower respiratory infection; E46 Unspecified protein-calorie malnutrition; E87.1 Hypo-osmolality and hyponatremia; R64 Cachexia; Z68.1 Body mass index [BMI] 19.9 or less, adult; J98.11 Atelectasis; T68.XXXA Hypothermia, initial encounter; X58.XXXA Exposure to other specified factors, initial encounter; D63.8 Anemia in other chronic diseases classified elsewhere; I27.20 Pulmonary hypertension, unspecified; C61 Malignant neoplasm of prostate; I11.0 Hypertensive heart disease with heart failure; I50.9 Heart failure, unspecified; E86.0 Dehydration; N40.0 Benign prostatic hyperplasia without lower urinary tract symptoms; E11.65 Type 2 diabetes mellitus with hyperglycemia; F39 Unspecified mood [affective] disorder; Z87.891 Personal history of nicotine dependence; K76.82 Hepatic encephalopathy; T63.441A Toxic effect of venom of bees, accidental (unintentional), initial encounter; N26.1 Atrophy of kidney (terminal); K21.9 Gastro-esophageal reflux disease without esophagitis; I48.91 Unspecified atrial fibrillation; E88.09 Other disorders of plasma-protein metabolism, not elsewhere classified; I49.3 Ventricular premature depolarization; N50.89 Other specified disorders of the male genital organs; Z79.899 Other long term (current) drug therapy; Z85.46 Personal history of malignant neoplasm of prostate; Z79.84 Long term (current) use of oral hypoglycemic drugs
CPT/HCPCS: 36410; 36415; 70450; 71045; 71250; 71275; 74177; 76937; 80053; 80320; 81001; 82140; 82550; 83605; 83735; 83880; 84100; 84145; 84153; 84443; 84484; 85025; 85379; 85610; 85730; 87040; 87449; 93005; 93306; 94640; 94760; 96361; 96365; 96366; 96375; 96376; 99291